=== PATIENT | male | born 1940 | race Caucasian/White ===

== ENCOUNTER 2018-08-31 07:59 | Day surgery (SDC) | payer MEDICARE, MEDICAID ==
[~2018-08-31] VITALS: Ht 162.6 cm; Wt 48.8 kg
[~2018-08-31 07:59] MED LIST: HEPARIN 1,000 UNITS/ML, 10ML ONE
[2018-08-31] MEDS ORDERED: SODIUM CHLORIDE 0.9% 1,000 ML IV SCH (08:45)
[2018-08-31 08:59] VITALS: BP 184/90
[2018-08-31] MEDS ORDERED: PLEASE ENTER ALLERGIES MC SCH (09:00)
[2018-08-31] MEDS ORDERED: PLEASE ENTER HEIGHT AND WEIGHT MC SCH (09:00)
[2018-08-31] MEDS ORDERED: AMLO-150 PO (09:20)
[2018-08-31] MEDS ORDERED: VITAMIN PO (09:20)
[2018-08-31] MEDS ORDERED: ASPI-496 PO (09:20)
[2018-08-31] MEDS ORDERED: SITA25TA PO (09:20)
[2018-08-31] MEDS ORDERED: WARF-36 PO (09:20)
[2018-08-31] MEDS ORDERED: VIT B PO (09:20)
[2018-08-31] MEDS ORDERED: SEVE800T8 PO (09:20)
[2018-08-31 09:44] LABS: INTERNATIONAL NORMALIZED RATIO 1.07 (0.93-1.1); PROTHROMBIN TIME 11.2 Seconds (9.6-11.5)
[2018-08-31] MEDS ORDERED: DIPHENHYDRAMINE 50 MG/ML, 1ML IVPush PRN (10:00)
[2018-08-31] MEDS ORDERED: PROMETHAZINE 25 MG/ML, 1ML IV PRN (10:00)
[2018-08-31] MEDS ORDERED: HYDROmorphone 2 MG/ML, 1ML IVPush PRN (10:00)
[2018-08-31] MEDS ORDERED: HALOPERIDOL 5 MG/ML IV PRN (10:00)
[2018-08-31] MEDS ORDERED: FENTANYL PF 100 MCG/2ML IV PRN (10:00)
[2018-08-31] MEDS ORDERED: PROCHLORPERAZINE 5 MG/ML, 2ML IV PRN (10:00)
[2018-08-31] MEDS ORDERED: METOPROLOL 1 MG/ML, 5ML IV PRN (10:00)
[2018-08-31] MEDS ORDERED: OXYcodone 5 MG/5 ML ORAL.SOL UDC PO PRN (10:00)
[2018-08-31] MEDS ORDERED: hydrALAzine 20 MG/ML, 1ML IV PRN (10:00)
[2018-08-31] MEDS ORDERED: LABETALOL 5MG/ML, 20ML IV PRN (10:00)
[2018-08-31] MEDS ORDERED: MEPERIDINE/PF 25MG/0.5ML IVPush PRN (10:00)
[2018-08-31] MEDS ORDERED: FENTANYL PF 100 MCG/2ML ONE ×2 (10:10→12:03)
[2018-08-31] MEDS ORDERED: SUGAMMADEX 200 MG/2 ML IVPush ONE (10:34)
[2018-08-31] MEDS ORDERED: HEPARIN 1,000 UNITS/ML, 10ML DIALYCATH ONE (10:58)
[2018-08-31] MEDS ORDERED: GLYCOPYRROLATE 0.2MG/1ML, 5ML ONE (11:24)
[2018-08-31] MEDS ORDERED: DEXAMETHASONE 4 MG/ML, 1ML ONE (11:24)
[2018-08-31] MEDS ORDERED: ONDANSETRON 2MG/ML, 2ML ONE (11:24)
[2018-08-31] MEDS ORDERED: PROPOFOL 10 MG/ML, 20ML ONE (11:24)
[2018-08-31] MEDS ORDERED: CEFAZOLIN 1,000 MG ONE (11:24)
[2018-08-31] MEDS ORDERED: ROCURONIUM 10MG/ML,5ML ONE (11:24)
[2018-08-31] MEDS ORDERED: SUCCINYLCHOLINE 20 MG/ML, 10ML ONE (11:24)
[2018-08-31] MEDS ORDERED: NEOSTIGMINE 1 MG/ML, 10ML ONE (11:24)
[2018-08-31] MEDS ORDERED: THROMBIN 5,000 UNIT VIAL TP ONE ×2 (11:35→11:57)
[2018-08-31] MEDS ORDERED: HYDROmorphone 1 MG/ML, 1ML ONE (12:03)
== END 2018-08-31 14:51 | disposition home or self-care (01) ==
LOC: OUT 07:59
PROVIDERS: ATTEND Surgery Vascular Surgery
DX: T82.590A Other mechanical complication of surgically created arteriovenous fistula, initial encounter (principal); I48.91 Unspecified atrial fibrillation; E11.9 Type 2 diabetes mellitus without complications; I25.10 Atherosclerotic heart disease of native coronary artery without angina pectoris; Z79.84 Long term (current) use of oral hypoglycemic drugs; Y92.89 Other specified places as the place of occurrence of the external cause; Y83.8 Other surgical procedures as the cause of abnormal reaction of the patient, or of later complication, without mention of misadventure at the time of the procedure
CPT/HCPCS: 36415; 36832; 80047; 85610; 93005; J0330; J0690; J1100; J1644; J2405; J2704; J2710; J3010; J3490; J7030

== ENCOUNTER 2018-12-15 11:40 | Inpatient (IN) | payer MEDICARE, MEDICAID ==
[~2018-12-15] VITALS: Ht 165.1 cm; Wt 47.5 kg
[~2018-12-15 11:40] MED LIST changes: -CINA30TA2 PO; -PLEASE ENTER HEIGHT AND WEIGHT MC SCH; -SODIUM CHLORIDE 0.9% 1,000 ML IV SCH
--- NOTE | 2018-12-15 11:55 | NUR ---
Pt assessed. Was at pre-op for dialysis cath removal and family notified RN that pt has right foot infection x 1 week. Sent to ED for eval. Denies drainage or fever from wound. Pt has hx kidney failure and DM. Last dialysis was yesterday, goes MWF. Pt to XRAY via [facility]
[2018-12-15] MEDS ORDERED: CINA30TA2 PO (12:15)
--- NOTE | 2018-12-15 12:16 | NUR ---
Pt back from XRAY, lab at drawing pt When pt asleep, O2 sat's drop to 80's. no hx sleep apnea per family. When pt arouses, O2 sat 99% room air. Placed on 3L NC while asleep.
--- NOTE | 2018-12-15 12:30 | NUR ---
Asked MD if wants wound cx, stated not at this time, no drainage from wound.
[2018-12-15 12:41] LABS: BASOPHILS # (AUTO) 0.01 x10^3/uL (0-0.1); BASOPHILS % (AUTO) 0 % (0-1); EOSINOPHILS # (AUTO) 0.11 x10^3/uL (0-0.4); EOSINOPHILS % (AUTO) 1 % (1-7); LYMPHOCYTES % (AUTO) 6 % (22-44); MD NO; MEAN CORPUSCULAR HEMOGLOBIN 31.7 pg (27.5-34.5); MEAN CORPUSCULAR VOLUME 99.2 fL (81-97); MEAN PLATELET VOLUME 7.2 fL (7.4-10.4); MONOCYTES # (AUTO) 0.52 x10^3/uL (0.2-0.8); MONOCYTES % (AUTO) 6 % (2-9); NEUTROPHILS # (AUTO) 7.42 x10^3/uL (1.8-6.8); NEUTROPHILS % (AUTO) 87 % (42-75); PLATELET COUNT 312 x10^3/uL (130-400); RED BLOOD COUNT 2.81 x10^6/uL (4.38-5.82); RED CELL DISTRIBUTION WIDTH 16.4 % (9.4-14.8)
[2018-12-15 12:52] LABS: INTERNATIONAL NORMALIZED RATIO 1.06 (0.93-1.1); PROTHROMBIN TIME 11.1 Seconds (9.6-11.5)
[2018-12-15 12:54] LABS: ALANINE AMINOTRANSFERASE 29 U/L (12-78); ALBUMIN 3.1 g/dL (3.4-5.0); ANION GAP 5 mmol/L (5-15); CALCIUM 8.4 mg/dL (8.5-10.1); CHLORIDE 99 mmol/L (98-107); CREATININE 5.83 mg/dL (0.7-1.3)
[2018-12-15 12:56] LABS: ALKALINE PHOSPHATASE 131 U/L (45-117); BILIRUBIN,TOTAL 1.1 mg/dL (0.2-1.0); TOTAL PROTEIN 6.4 g/dL (6.4-8.2)
[2018-12-15] MEDS ORDERED: VANCOMYCIN PMX 1GM/200ML 200 ML IV ONE (13:30)
[2018-12-15] MEDS ORDERED: VANCOMYCIN PER PHARMACY MC PRN ×2 (13:30→15:00)
--- NOTE | 2018-12-15 14:53 | NUR ---
Pt asleep at this time, awaiting inpatient orders. Abx infusing. NAD
[2018-12-15] MEDS ORDERED: HEPARIN 5,000 UNITS/ML, 1ML SQ SCH (15:00)
[2018-12-15] MEDS ORDERED: ONDANSETRON 2MG/ML, 2ML IVPush PRN (15:00)
[2018-12-15] MEDS ORDERED: ZOSYN PER PHARMACY MC PRN (15:00)
[2018-12-15] MEDS ORDERED: FLUCONAZOLE 200 MG/100 ML 100 ML IV ONE (15:00)
[2018-12-15] MEDS ORDERED: ONDANSETRON ODT 4 MG PO PRN (15:00)
--- NOTE | 2018-12-15 15:29 | NUR ---
Report to floor, ready for pt
[2018-12-15] MEDS ORDERED: HEPARIN 5,000 UNITS/ML, 1ML IV ONE (15:30)
[2018-12-15] MEDS ORDERED: PHARMACOKINETIC MONITORING MC PRN (16:00)
[2018-12-15] MEDS: INSULIN LISPRO 100 UNITS/ML, PEN SQ-INSULIN SCH ×2 (16:00→21:34)
[2018-12-15] MEDS ORDERED: NYSTATIN TOPICAL POWDER 15GM TP ONE (16:00)
[2018-12-15] MEDS ORDERED: LIDOCAINE-MPF 1%, 5ML ONE (16:11)
[2018-12-15 16:13] VITALS: BP 162/79
[2018-12-15] MEDS: HEPARIN 25,000 UNITS/500ML PMX 500 ML IV PRN (18:01)
[2018-12-15] MEDS: PIPERACILLIN/TAZO/PMX 2.25GM 50 ML IVPB SCH (18:04)
[2018-12-15] MEDS: SEVELAMER CARBONATE 800MG TAB PO SCH (18:04)
[2018-12-15] MEDS: CARVEDILOL 3.125 MG TABLET PO SCH (18:04)
[2018-12-15 19:45] VITALS: BP 105/53
[2018-12-15] MEDS: ACETAMINOPHEN 325 MG TABLET PO PRN (20:29)
[2018-12-16 01:07] VITALS: BP 132/60
[2018-12-16] MEDS: HEPARIN 5,000 UNITS/ML, 1ML IV PRN ×3 (01:16→16:12)
[2018-12-16] MEDS: PIPERACILLIN/TAZO/PMX 2.25GM 50 ML IVPB SCH ×2 (04:10→17:21)
[2018-12-16] MEDS: CARVEDILOL 3.125 MG TABLET PO SCH ×2 (05:39→17:21)
[2018-12-16] MEDS: INSULIN LISPRO 100 UNITS/ML, PEN SQ-INSULIN SCH ×4 (07:00→21:29)
[2018-12-16 07:35] VITALS: BP 155/82
[2018-12-16] MEDS: SENNA/DOCUSATE TABLET PO SCH (08:38)
[2018-12-16] MEDS: SEVELAMER CARBONATE 800MG TAB PO SCH ×3 (08:38→17:21)
[2018-12-16] MEDS: LINAGLIPTIN 5 MG TAB PO SCH (08:38)
[2018-12-16] MEDS: CINACALCET 30 MG TABLET PO SCH (08:38)
[2018-12-16] MEDS: ASPIRIN 81 MG TABLET EC PO SCH (08:39)
[2018-12-16] MEDS ORDERED: LORazepam 0.5MG TABLET PO ONE (10:30)
[2018-12-16] MEDS ORDERED: DARBEPOETIN 100 MCG/ML SQ SCH (11:00)
[2018-12-16 12:02] VITALS: BP 125/74
[2018-12-16 13:27] LABS: BASOPHILS # (AUTO) 0.04 x10^3/uL (0-0.1); BASOPHILS % (AUTO) 0 % (0-1); EOSINOPHILS # (AUTO) 0.12 x10^3/uL (0-0.4); EOSINOPHILS % (AUTO) 1 % (1-7); LYMPHOCYTES # (AUTO) 0.39 x10^3/uL (1-3.4); LYMPHOCYTES % (AUTO) 4 % (22-44); MD NO; MEAN CORPUSCULAR HEMOGLOBIN 30.7 pg (27.5-34.5); MEAN CORPUSCULAR HGB CONC 31.6 g/dL (33.2-36.2); MEAN CORPUSCULAR VOLUME 97.2 fL (81-97); MEAN PLATELET VOLUME 7.3 fL (7.4-10.4); MONOCYTES # (AUTO) 0.59 x10^3/uL (0.2-0.8); MONOCYTES % (AUTO) 6 % (2-9); NEUTROPHILS % (AUTO) 88 % (42-75); PLATELET COUNT 282 x10^3/uL (130-400); RED BLOOD COUNT 2.93 x10^6/uL (4.38-5.82); RED CELL DISTRIBUTION WIDTH 15.9 % (9.4-14.8)
[2018-12-16 13:37] LABS: ANION GAP 10 mmol/L (5-15); CALCIUM 8.3 mg/dL (8.5-10.1); CHLORIDE 97 mmol/L (98-107)
[2018-12-16 13:39] LABS: % IRON SATURATION 9 % (20-55); CREATININE 7.05 mg/dL (0.7-1.3); IRON LEVEL 24 mcg/dL (65-175); TOTAL IRON BINDING CAPACITY 256 mcg/dL (250-450)
[2018-12-16] MEDS: DARBEPOETIN 60 MCG/ML SQ SCH (14:17)
[2018-12-16 14:43] LABS: HEMOGLOBIN A1C 4.4 % (4.2-6.3)
[2018-12-16] MEDS ORDERED: GADOBUTROL 7.5 MMOL/7.5 ML PFS ONE (16:16)
[2018-12-16] MEDS: FLUCONAZOLE IV SCH (16:17)
[2018-12-16 19:55] VITALS: BP 125/70
[2018-12-16 21:14] VITALS: BP 122/70
[2018-12-17 01:54] VITALS: BP 135/74
[2018-12-17 02:14] LABS: MEAN CORPUSCULAR HEMOGLOBIN 30.6 pg (27.5-34.5); MEAN CORPUSCULAR HGB CONC 31.8 g/dL (33.2-36.2); MEAN CORPUSCULAR VOLUME 96.5 fL (81-97); MEAN PLATELET VOLUME 7.6 fL (7.4-10.4); PLATELET COUNT 261 x10^3/uL (130-400); RED BLOOD COUNT 2.43 x10^6/uL (4.38-5.82); RED CELL DISTRIBUTION WIDTH 15.9 % (9.4-14.8)
[2018-12-17 02:16] LABS: MD YES
[2018-12-17 02:19] LABS: ANISOCYTOSIS 1+; BANDS%(MANUAL) 1 % (0-7); BASOS% (MANUAL) 1 % (0-1); EOS#(MANUAL) 0.39 x10^3/uL (0.0-0.4); EOS% (MANUAL) 4 % (1-7); LYMPHS% (MANUAL) 1 % (22-44); MONOS#(MANUAL) 0.97 x10^3/uL (0.3-2.7); MONOS% (MANUAL) 10 % (2-9); SEG#(MANUAL) 8.05 x10^3/uL (1.8-6.8); SEGS% (MANUAL) 83 % (42-75)
[2018-12-17 02:20] LABS: POLYCHROMASIA 1+
[2018-12-17 02:30] LABS: <PLATELET ESTIMATE> ADEQUATE; <PLT MORPHOLOGY> NORMAL PLT MORPH
[2018-12-17 02:48] LABS: ALBUMIN 2.5 g/dL (3.4-5.0); CHLORIDE 99 mmol/L (98-107)
[2018-12-17 02:51] LABS: % IRON SATURATION 11 % (20-55); ALANINE AMINOTRANSFERASE 21 U/L (12-78); ALKALINE PHOSPHATASE 121 U/L (45-117); ANION GAP 11 mmol/L (5-15); BILIRUBIN,TOTAL 0.9 mg/dL (0.2-1.0); CREATININE 7.63 mg/dL (0.7-1.3); IRON LEVEL 18 mcg/dL (65-175); TOTAL IRON BINDING CAPACITY 157 mcg/dL (250-450); TOTAL PROTEIN 5.7 g/dL (6.4-8.2)
[2018-12-17] MEDS: HEPARIN 25,000 UNITS/500ML PMX 500 ML IV PRN (03:57)
[2018-12-17] MEDS: CARVEDILOL 3.125 MG TABLET PO SCH ×2 (05:11→20:53)
[2018-12-17] MEDS: PIPERACILLIN/TAZO/PMX 2.25GM 50 ML IVPB SCH ×2 (05:11→17:59)
[2018-12-17] MEDS: INSULIN LISPRO 100 UNITS/ML, PEN SQ-INSULIN SCH ×4 (07:00→20:41)
[2018-12-17 07:18] VITALS: BP 129/78
[2018-12-17] MEDS: SEVELAMER CARBONATE 800MG TAB PO SCH ×3 (09:56→17:00)
[2018-12-17] MEDS: CINACALCET 30 MG TABLET PO SCH (09:57)
[2018-12-17] MEDS: ASPIRIN 81 MG TABLET EC PO SCH (09:57)
[2018-12-17] MEDS: SENNA/DOCUSATE TABLET PO SCH (09:57)
[2018-12-17] MEDS: LINAGLIPTIN 5 MG TAB PO SCH (09:57)
[2018-12-17 13:15] VITALS: BP 106/61
[2018-12-17] MEDS: FLUCONAZOLE IV SCH (15:06)
[2018-12-17 19:34] VITALS: BP 147/82
[2018-12-17 20:52] VITALS: BP 116/70
[2018-12-18 02:03] VITALS: BP 158/87
[2018-12-18 05:33] VITALS: BP 139/78
[2018-12-18] MEDS: PIPERACILLIN/TAZO/PMX 2.25GM 50 ML IVPB SCH ×2 (05:34→17:44)
[2018-12-18] MEDS: CARVEDILOL 3.125 MG TABLET PO SCH ×2 (05:35→17:44)
[2018-12-18 06:43] LABS: BASOPHILS # (AUTO) 0.04 x10^3/uL (0-0.1); BASOPHILS % (AUTO) 1 % (0-1); EOSINOPHILS # (AUTO) 0.12 x10^3/uL (0-0.4); EOSINOPHILS % (AUTO) 2 % (1-7); LYMPHOCYTES # (AUTO) 0.42 x10^3/uL (1-3.4); LYMPHOCYTES % (AUTO) 6 % (22-44); MD NO; MEAN CORPUSCULAR HEMOGLOBIN 30.5 pg (27.5-34.5); MEAN CORPUSCULAR VOLUME 95.4 fL (81-97); MEAN PLATELET VOLUME 7.1 fL (7.4-10.4); MONOCYTES # (AUTO) 0.43 x10^3/uL (0.2-0.8); MONOCYTES % (AUTO) 6 % (2-9); NEUTROPHILS # (AUTO) 5.78 x10^3/uL (1.8-6.8); NEUTROPHILS % (AUTO) 85 % (42-75); PLATELET COUNT 298 x10^3/uL (130-400); RED BLOOD COUNT 2.48 x10^6/uL (4.38-5.82); RED CELL DISTRIBUTION WIDTH 15.9 % (9.4-14.8)
[2018-12-18 06:55] LABS: ALBUMIN 2.4 g/dL (3.4-5.0); ANION GAP 7 mmol/L (5-15); CHLORIDE 101 mmol/L (98-107)
[2018-12-18] MEDS: INSULIN LISPRO 100 UNITS/ML, PEN SQ-INSULIN SCH ×4 (07:00→20:37)
[2018-12-18 07:01] LABS: ALANINE AMINOTRANSFERASE 13 U/L (12-78); ALKALINE PHOSPHATASE 111 U/L (45-117); BILIRUBIN,TOTAL 1.1 mg/dL (0.2-1.0); CREATININE 5.19 mg/dL (0.7-1.3); TOTAL PROTEIN 5.9 g/dL (6.4-8.2); VANCOMYCIN,RANDOM 10.8 mcg/mL
[2018-12-18] MEDS: HEPARIN 25,000 UNITS/500ML PMX 500 ML IV PRN (07:05)
[2018-12-18] MEDS: HEPARIN 5,000 UNITS/ML, 1ML IV PRN ×3 (07:50→22:00)
[2018-12-18 08:07] VITALS: BP 158/78
[2018-12-18] MEDS ORDERED: VANCOMYCIN PMX 1GM/200ML 200 ML IV ONE (09:00)
[2018-12-18] MEDS: ASPIRIN 81 MG TABLET EC PO SCH (09:23)
[2018-12-18] MEDS: SENNA/DOCUSATE TABLET PO SCH (09:23)
[2018-12-18] MEDS: LINAGLIPTIN 5 MG TAB PO SCH (09:23)
[2018-12-18] MEDS: CINACALCET 30 MG TABLET PO SCH (09:23)
[2018-12-18] MEDS: SEVELAMER CARBONATE 800MG TAB PO SCH ×3 (09:23→17:44)
[2018-12-18 12:52] VITALS: BP 131/72
[2018-12-18 15:01] LABS: OCCULT BLOOD NEGATIVE (NEGATIVE)
[2018-12-18 17:48] VITALS: BP 166/81
[2018-12-18 19:09] VITALS: BP 146/78
[2018-12-19 01:58] VITALS: BP 144/85
[2018-12-19] MEDS: HEPARIN 25,000 UNITS/500ML PMX 500 ML IV PRN ×2 (04:17→22:22)
[2018-12-19 05:02] LABS: ALANINE AMINOTRANSFERASE 16 U/L (12-78); ALBUMIN 2.5 g/dL (3.4-5.0); ANION GAP 9 mmol/L (5-15); CALCIUM 8.1 mg/dL (8.5-10.1); CHLORIDE 99 mmol/L (98-107)
[2018-12-19 05:03] LABS: BASOPHILS # (AUTO) 0.06 x10^3/uL (0-0.1); BASOPHILS % (AUTO) 1 % (0-1); EOSINOPHILS % (AUTO) 2 % (1-7); LYMPHOCYTES # (AUTO) 0.81 x10^3/uL (1-3.4); LYMPHOCYTES % (AUTO) 8 % (22-44); MD NO; MEAN CORPUSCULAR HEMOGLOBIN 31.1 pg (27.5-34.5); MEAN CORPUSCULAR HGB CONC 32.1 g/dL (33.2-36.2); MEAN CORPUSCULAR VOLUME 96.7 fL (81-97); MEAN PLATELET VOLUME 7.3 fL (7.4-10.4); MONOCYTES # (AUTO) 0.66 x10^3/uL (0.2-0.8); MONOCYTES % (AUTO) 7 % (2-9); NEUTROPHILS % (AUTO) 82 % (42-75); PLATELET COUNT 295 x10^3/uL (130-400); RED BLOOD COUNT 2.69 x10^6/uL (4.38-5.82); RED CELL DISTRIBUTION WIDTH 16.3 % (9.4-14.8)
[2018-12-19 05:04] LABS: ALKALINE PHOSPHATASE 125 U/L (45-117); BILIRUBIN,TOTAL 0.7 mg/dL (0.2-1.0); TOTAL PROTEIN 6.1 g/dL (6.4-8.2)
[2018-12-19] MEDS: HEPARIN 5,000 UNITS/ML, 1ML IV PRN (05:04)
[2018-12-19] MEDS: CARVEDILOL 3.125 MG TABLET PO SCH ×2 (05:05→17:25)
[2018-12-19] MEDS: PIPERACILLIN/TAZO/PMX 2.25GM 50 ML IVPB SCH ×2 (05:05→17:13)
[2018-12-19] MEDS: INSULIN LISPRO 100 UNITS/ML, PEN SQ-INSULIN SCH ×4 (07:00→20:33)
[2018-12-19 07:42] VITALS: BP 139/78
[2018-12-19] MEDS: SEVELAMER CARBONATE 800MG TAB PO SCH ×4 (08:00→17:25)
[2018-12-19] MEDS: SENNA/DOCUSATE TABLET PO SCH (08:22)
[2018-12-19] MEDS: CINACALCET 30 MG TABLET PO SCH (08:22)
[2018-12-19] MEDS: LINAGLIPTIN 5 MG TAB PO SCH (08:22)
[2018-12-19] MEDS: ASPIRIN 81 MG TABLET EC PO SCH (08:22)
[2018-12-19 14:29] VITALS: BP 154/79
[2018-12-19 19:11] VITALS: BP 130/71
[2018-12-20 03:05] VITALS: BP 151/79
[2018-12-20 05:20] LABS: BASOPHILS # (AUTO) 0.02 x10^3/uL (0-0.1); BASOPHILS % (AUTO) 0 % (0-1); EOSINOPHILS # (AUTO) 0.16 x10^3/uL (0-0.4); EOSINOPHILS % (AUTO) 2 % (1-7); HCT (SEDRATE) 25.7 % (39.2-51.8); LYMPHOCYTES # (AUTO) 0.49 x10^3/uL (1-3.4); LYMPHOCYTES % (AUTO) 7 % (22-44); MD NO; MEAN CORPUSCULAR HEMOGLOBIN 30.6 pg (27.5-34.5); MEAN CORPUSCULAR VOLUME 95.8 fL (81-97); MEAN PLATELET VOLUME 7.1 fL (7.4-10.4); MONOCYTES # (AUTO) 0.38 x10^3/uL (0.2-0.8); MONOCYTES % (AUTO) 6 % (2-9); NEUTROPHILS # (AUTO) 5.82 x10^3/uL (1.8-6.8); NEUTROPHILS % (AUTO) 85 % (42-75); PLATELET COUNT 319 x10^3/uL (130-400); RED BLOOD COUNT 2.68 x10^6/uL (4.38-5.82); RED CELL DISTRIBUTION WIDTH 15.7 % (9.4-14.8)
[2018-12-20 05:24] LABS: ANION GAP 6 mmol/L (5-15); CALCIUM 8.8 mg/dL (8.5-10.1); CHLORIDE 99 mmol/L (98-107); CREATININE 4.53 mg/dL (0.7-1.3)
[2018-12-20 05:52] VITALS: BP 162/82
[2018-12-20] MEDS: PIPERACILLIN/TAZO/PMX 2.25GM 50 ML IVPB SCH ×2 (05:53→16:59)
[2018-12-20] MEDS: CARVEDILOL 3.125 MG TABLET PO SCH ×2 (05:53→16:59)
[2018-12-20] MEDS: INSULIN LISPRO 100 UNITS/ML, PEN SQ-INSULIN SCH ×4 (07:00→20:41)
[2018-12-20 07:16] VITALS: BP 156/80
[2018-12-20] MEDS: SEVELAMER CARBONATE 800MG TAB PO SCH ×3 (08:00→16:59)
[2018-12-20] MEDS: CINACALCET 30 MG TABLET PO SCH (09:00)
[2018-12-20] MEDS: LINAGLIPTIN 5 MG TAB PO SCH (09:00)
[2018-12-20] MEDS: ASPIRIN 81 MG TABLET EC PO SCH (09:00)
[2018-12-20] MEDS: SENNA/DOCUSATE TABLET PO SCH (09:00)
[2018-12-20 15:47] VITALS: BP 141/68
[2018-12-20] MEDS ORDERED: HEPARIN 5,000 UNITS/ML, 1ML IV PRN (16:30)
[2018-12-20] MEDS ORDERED: HEPARIN 25,000 UNITS/500ML PMX 500 ML ONE (16:49)
[2018-12-20] MEDS ORDERED: HEPARIN 25,000 UNITS/500ML PMX 500 ML IV PRN (17:00)
[2018-12-20 20:31] VITALS: BP 130/65
[2018-12-21 01:54] VITALS: BP 135/72
[2018-12-21 05:27] VITALS: BP 158/74
[2018-12-21] MEDS: PIPERACILLIN/TAZO/PMX 2.25GM 50 ML IVPB SCH ×2 (05:27→16:48)
[2018-12-21] MEDS: CARVEDILOL 3.125 MG TABLET PO SCH ×2 (05:27→18:00)
[2018-12-21 06:50] LABS: MEAN CORPUSCULAR HEMOGLOBIN 30.7 pg (27.5-34.5); MEAN CORPUSCULAR HGB CONC 32.3 g/dL (33.2-36.2); MEAN CORPUSCULAR VOLUME 95.3 fL (81-97); MEAN PLATELET VOLUME 7.1 fL (7.4-10.4); PLATELET COUNT 346 x10^3/uL (130-400); RED BLOOD COUNT 2.34 x10^6/uL (4.38-5.82); RED CELL DISTRIBUTION WIDTH 15.8 % (9.4-14.8)
[2018-12-21 06:58] LABS: ANION GAP 11 mmol/L (5-15); CALCIUM 8.9 mg/dL (8.5-10.1); CHLORIDE 96 mmol/L (98-107); CREATININE 5.87 mg/dL (0.7-1.3)
[2018-12-21 07:17] LABS: BASOPHILS % (AUTO) 0 % (0-1); EOSINOPHILS # (AUTO) 0.16 x10^3/uL (0-0.4); EOSINOPHILS % (AUTO) 2 % (1-7); LYMPHOCYTES # (AUTO) 0.67 x10^3/uL (1-3.4); LYMPHOCYTES % (AUTO) 10 % (22-44); MD SCAN; MONOCYTES # (AUTO) 0.34 x10^3/uL (0.2-0.8); MONOCYTES % (AUTO) 5 % (2-9); NEUTROPHILS # (AUTO) 5.72 x10^3/uL (1.8-6.8); NEUTROPHILS % (AUTO) 83 % (42-75)
[2018-12-21] MEDS: SEVELAMER CARBONATE 800MG TAB PO SCH ×3 (08:00→16:37)
[2018-12-21] MEDS: INSULIN LISPRO 100 UNITS/ML, PEN SQ-INSULIN SCH ×4 (08:42→21:30)
[2018-12-21] MEDS: SENNA/DOCUSATE TABLET PO SCH (09:00)
[2018-12-21] MEDS ORDERED: POTASSIUM CHLORIDE 40 MEQ in SODIUM CHLORIDE 0.9% 500 ML IV ONE (09:00)
[2018-12-21] MEDS: CINACALCET 30 MG TABLET PO SCH (09:00)
[2018-12-21] MEDS: ASPIRIN 81 MG TABLET EC PO SCH (09:00)
[2018-12-21] MEDS: IRON SUCROSE COMPLEX 100MG/5ML IV SCH (10:25)
[2018-12-21 13:11] VITALS: BP 159/59
[2018-12-21] MEDS ORDERED: HEPARIN 25,000 UNITS/500ML PMX 500 ML IV PRN (16:00)
[2018-12-21] MEDS ORDERED: ROCURONIUM 10MG/ML,5ML ONE (19:03)
[2018-12-21] MEDS ORDERED: PROPOFOL 10 MG/ML, 20ML ONE (19:03)
[2018-12-21] MEDS ORDERED: FENTANYL PF 250 MCG/5ML ONE (19:08)
[2018-12-21] MEDS ORDERED: NEOSTIGMINE 1 MG/ML, 10ML ONE (19:08)
[2018-12-21] MEDS ORDERED: GLYCOPYRROLATE 0.4 MG/2 ML, 2ML ONE (19:08)
[2018-12-21] MEDS ORDERED: SODIUM CHLORIDE 0.9% PF 10ML ONE (19:09)
[2018-12-21] MEDS ORDERED: CEFAZOLIN 1,000 MG ONE ×2 (19:09)
[2018-12-21] MEDS ORDERED: LABETALOL 5MG/ML, 20ML IV PRN (19:30)
[2018-12-21] MEDS ORDERED: hydrALAzine 20 MG/ML, 1ML IV PRN (19:30)
[2018-12-21] MEDS ORDERED: ONDANSETRON ODT 8 MG PO PRN (19:30)
[2018-12-21] MEDS ORDERED: ONDANSETRON 2MG/ML, 2ML IV PRN (19:30)
[2018-12-21] MEDS ORDERED: OXYcodone 5 MG/5 ML ORAL.SOL UDC PO PRN (19:30)
[2018-12-21] MEDS ORDERED: FENTANYL PF 100 MCG/2ML IV PRN (19:30)
[2018-12-21] MEDS ORDERED: PHENYLEPHRINE 10 MG/ML ONE (19:50)
[2018-12-21] MEDS ORDERED: HYDROmorphone 2 MG/ML, 1ML ONE (20:57)
[2018-12-21] MEDS: HYDROmorphone 2 MG/ML, 1ML IVPush PRN ×2 (21:00→21:10)
[2018-12-21 22:24] VITALS: BP 145/81
[2018-12-21] MEDS ORDERED: HYDROmorphone 2 MG/ML, 1ML IVPush PRN (23:00)
[2018-12-21] MEDS: SODIUM CHLORIDE 0.9% 1,000 ML IV SCH (23:20)
[2018-12-22 02:19] VITALS: BP 145/84
[2018-12-22] MEDS: OXYcodone 5 MG/5 ML ORAL.SOL UDC PO PRN ×3 (05:14→22:20)
[2018-12-22] MEDS: CARVEDILOL 3.125 MG TABLET PO SCH ×2 (05:15→17:03)
[2018-12-22] MEDS: PIPERACILLIN/TAZO/PMX 2.25GM 50 ML IVPB SCH ×2 (06:02→17:03)
[2018-12-22 06:26] LABS: BASOPHILS # (AUTO) 0.02 x10^3/uL (0-0.1); BASOPHILS % (AUTO) 0 % (0-1); EOSINOPHILS # (AUTO) 0.19 x10^3/uL (0-0.4); EOSINOPHILS % (AUTO) 2 % (1-7); LYMPHOCYTES # (AUTO) 0.59 x10^3/uL (1-3.4); LYMPHOCYTES % (AUTO) 5 % (22-44); MD NO; MEAN CORPUSCULAR HEMOGLOBIN 30.2 pg (27.5-34.5); MEAN CORPUSCULAR HGB CONC 31.9 g/dL (33.2-36.2); MEAN CORPUSCULAR VOLUME 94.7 fL (81-97); MONOCYTES # (AUTO) 0.44 x10^3/uL (0.2-0.8); MONOCYTES % (AUTO) 4 % (2-9); NEUTROPHILS # (AUTO) 10.33 x10^3/uL (1.8-6.8); NEUTROPHILS % (AUTO) 89 % (42-75); PLATELET COUNT 372 x10^3/uL (130-400); RED BLOOD COUNT 2.67 x10^6/uL (4.38-5.82); RED CELL DISTRIBUTION WIDTH 15.8 % (9.4-14.8)
[2018-12-22 06:27] VITALS: BP 150/81
[2018-12-22 06:29] LABS: ALANINE AMINOTRANSFERASE 15 U/L (12-78); ALBUMIN 2.5 g/dL (3.4-5.0); ANION GAP 10 mmol/L (5-15); CALCIUM 9.7 mg/dL (8.5-10.1); CHLORIDE 99 mmol/L (98-107); CREATININE 6.77 mg/dL (0.7-1.3)
[2018-12-22 06:31] LABS: ALKALINE PHOSPHATASE 104 U/L (45-117); BILIRUBIN,TOTAL 0.8 mg/dL (0.2-1.0); TOTAL PROTEIN 6.2 g/dL (6.4-8.2)
[2018-12-22] MEDS: SEVELAMER CARBONATE 800MG TAB PO SCH ×3 (08:27→17:03)
[2018-12-22] MEDS: INSULIN LISPRO 100 UNITS/ML, PEN SQ-INSULIN SCH ×4 (08:27→20:31)
[2018-12-22] MEDS: SENNA/DOCUSATE TABLET PO SCH (09:00)
[2018-12-22] MEDS: CINACALCET 30 MG TABLET PO SCH (09:00)
[2018-12-22] MEDS: ASPIRIN 81 MG TABLET EC PO SCH (09:00)
[2018-12-22] MEDS: IRON SUCROSE COMPLEX 100MG/5ML IV SCH (09:00)
[2018-12-22] MEDS: LINAGLIPTIN 5 MG TAB PO SCH (09:00)
[2018-12-22] MEDS: AMLODIPINE 5 MG TABLET PO SCH (09:00)
[2018-12-22 13:49] VITALS: BP 123/64
[2018-12-22 18:00] LABS: INTERNATIONAL NORMALIZED RATIO 1.04 (0.93-1.1); PROTHROMBIN TIME 10.9 Seconds (9.6-11.5)
[2018-12-22] MEDS: WARFARIN 5 MG TABLET PO-COUM SCH (18:17)
[2018-12-22 19:05] VITALS: BP 106/51
[2018-12-23] VITALS (8 sets, daily range): BP systolic 100–127; BP diastolic 52–75
[2018-12-23] MEDS: PIPERACILLIN/TAZO/PMX 2.25GM 50 ML IVPB SCH (05:12)
[2018-12-23] MEDS: CARVEDILOL 3.125 MG TABLET PO SCH ×2 (05:13→17:23)
[2018-12-23] MEDS: SODIUM CHLORIDE 0.9% 1,000 ML IV SCH (05:13)
[2018-12-23] MEDS: OXYcodone 5 MG/5 ML ORAL.SOL UDC PO PRN ×2 (06:10→18:11)
[2018-12-23 07:10] LABS: ALANINE AMINOTRANSFERASE 9 U/L (12-78); ALBUMIN 2.3 g/dL (3.4-5.0); ANION GAP 9 mmol/L (5-15); CALCIUM 8.9 mg/dL (8.5-10.1); CHLORIDE 100 mmol/L (98-107); CREATININE 5.16 mg/dL (0.7-1.3)
[2018-12-23 07:12] LABS: ALKALINE PHOSPHATASE 103 U/L (45-117); BILIRUBIN,TOTAL 0.8 mg/dL (0.2-1.0); TOTAL PROTEIN 5.9 g/dL (6.4-8.2)
[2018-12-23 07:18] LABS: MEAN CORPUSCULAR HEMOGLOBIN 31.2 pg (27.5-34.5); MEAN CORPUSCULAR HGB CONC 32.2 g/dL (33.2-36.2); MEAN CORPUSCULAR VOLUME 97.1 fL (81-97); RED CELL DISTRIBUTION WIDTH 16.8 % (9.4-14.8)
[2018-12-23 07:20] LABS: HEMOGRAM NOTE RECHECKED
[2018-12-23 07:21] LABS: MEAN PLATELET VOLUME 7.1 fL (7.4-10.4); PLATELET COUNT 352 x10^3/uL (130-400)
[2018-12-23 08:13] LABS: MD YES
[2018-12-23 08:15] LABS: BAND#(MANUAL) 0.21 x10^3/uL; BANDS%(MANUAL) 3 % (0-7); BASOS#(MANUAL) 0.07 x10^3/uL (0-0.1); BASOS% (MANUAL) 1 % (0-1); LYMPH#(MANUAL) 0.35 x10^3/uL (1-3.4); LYMPHS% (MANUAL) 5 % (22-44); METAMYELOCYTES# (MANUAL) 0.14 x10^3/uL (0-0); METAMYELOCYTES% (MANUAL) 2 % (0-1); MONOS#(MANUAL) 0.21 x10^3/uL (0.3-2.7); MONOS% (MANUAL) 3 % (2-9); SEG#(MANUAL) 6.02 x10^3/uL (1.8-6.8); SEGS% (MANUAL) 86 % (42-75)
[2018-12-23 08:16] LABS: ANISOCYTOSIS 2+; POLYCHROMASIA 1+
[2018-12-23 08:17] LABS: HYPOCHROMIA 1+
[2018-12-23 08:18] LABS: <PLATELET ESTIMATE> ADEQUATE; <PLT MORPHOLOGY> NORMAL PLT MORPH
[2018-12-23] MEDS: ASPIRIN 81 MG TABLET EC PO SCH (08:24)
[2018-12-23] MEDS: LINAGLIPTIN 5 MG TAB PO SCH (08:24)
[2018-12-23] MEDS: CINACALCET 30 MG TABLET PO SCH (08:24)
[2018-12-23] MEDS: SEVELAMER CARBONATE 800MG TAB PO SCH ×3 (08:24→17:22)
[2018-12-23] MEDS: IRON SUCROSE COMPLEX 100MG/5ML IV SCH (08:25)
[2018-12-23] MEDS: INSULIN LISPRO 100 UNITS/ML, PEN SQ-INSULIN SCH ×4 (08:25→20:07)
[2018-12-23] MEDS: SENNA/DOCUSATE TABLET PO SCH (08:25)
[2018-12-23] MEDS: AMLODIPINE 5 MG TABLET PO SCH (08:25)
[2018-12-23] MEDS: DARBEPOETIN 60 MCG/ML SQ SCH (11:25)
[2018-12-23 18:04] LABS: INTERNATIONAL NORMALIZED RATIO 1.37 (0.93-1.1); PROTHROMBIN TIME 14.2 Seconds (9.6-11.5)
[2018-12-23] MEDS: WARFARIN 5 MG TABLET PO-COUM SCH (18:25)
[2018-12-24 01:08] VITALS: BP 117/72
[2018-12-24] MEDS: CARVEDILOL 3.125 MG TABLET PO SCH ×2 (05:40→17:31)
[2018-12-24 05:58] LABS: INTERNATIONAL NORMALIZED RATIO 1.49 (0.93-1.1); PROTHROMBIN TIME 15.4 Seconds (9.6-11.5)
[2018-12-24 06:02] LABS: BASOPHILS # (AUTO) 0.04 x10^3/uL (0-0.1); BASOPHILS % (AUTO) 1 % (0-1); EOSINOPHILS # (AUTO) 0.25 x10^3/uL (0-0.4); EOSINOPHILS % (AUTO) 3 % (1-7); LYMPHOCYTES # (AUTO) 0.75 x10^3/uL (1-3.4); LYMPHOCYTES % (AUTO) 10 % (22-44); MD NO; MEAN CORPUSCULAR HEMOGLOBIN 31.1 pg (27.5-34.5); MEAN CORPUSCULAR HGB CONC 32.3 g/dL (33.2-36.2); MEAN CORPUSCULAR VOLUME 96.2 fL (81-97); MEAN PLATELET VOLUME 6.8 fL (7.4-10.4); MONOCYTES # (AUTO) 0.43 x10^3/uL (0.2-0.8); MONOCYTES % (AUTO) 6 % (2-9); NEUTROPHILS # (AUTO) 6.29 x10^3/uL (1.8-6.8); NEUTROPHILS % (AUTO) 81 % (42-75); PLATELET COUNT 358 x10^3/uL (130-400); RED CELL DISTRIBUTION WIDTH 16.5 % (9.4-14.8)
[2018-12-24 06:07] LABS: ALBUMIN 2.4 g/dL (3.4-5.0); ANION GAP 8 mmol/L (5-15); CALCIUM 8.7 mg/dL (8.5-10.1); CHLORIDE 100 mmol/L (98-107)
[2018-12-24 06:10] LABS: ALANINE AMINOTRANSFERASE < 6 U/L (12-78); ALKALINE PHOSPHATASE 125 U/L (45-117); BILIRUBIN,TOTAL 0.8 mg/dL (0.2-1.0); CREATININE 6.23 mg/dL (0.7-1.3); TOTAL PROTEIN 6.1 g/dL (6.4-8.2)
[2018-12-24] MEDS: INSULIN LISPRO 100 UNITS/ML, PEN SQ-INSULIN SCH ×4 (07:00→21:00)
[2018-12-24] MEDS: SEVELAMER CARBONATE 800MG TAB PO SCH ×3 (08:00→17:30)
[2018-12-24] MEDS: SENNA/DOCUSATE TABLET PO SCH (09:00)
[2018-12-24] MEDS: AMLODIPINE 5 MG TABLET PO SCH (13:28)
[2018-12-24] MEDS: CINACALCET 30 MG TABLET PO SCH (13:28)
[2018-12-24] MEDS: ASPIRIN 81 MG TABLET EC PO SCH (13:28)
[2018-12-24] MEDS: LINAGLIPTIN 5 MG TAB PO SCH (13:28)
[2018-12-24] MEDS: IRON SUCROSE COMPLEX 100MG/5ML IV SCH (13:28)
[2018-12-24] MEDS: WARFARIN 5 MG TABLET PO-COUM SCH (17:31)
[2018-12-24 19:19] VITALS: BP 138/74
[2018-12-25 00:51] VITALS: BP 133/71
[2018-12-25] MEDS: OXYcodone 5 MG/5 ML ORAL.SOL UDC PO PRN ×2 (02:12→10:29)
[2018-12-25] MEDS: CARVEDILOL 3.125 MG TABLET PO SCH ×2 (05:54→22:05)
[2018-12-25 06:07] LABS: INTERNATIONAL NORMALIZED RATIO 3.38 (0.93-1.1)
[2018-12-25 06:11] LABS: PROTHROMBIN TIME 33.9 Seconds (9.6-11.5)
[2018-12-25 06:12] LABS: CALCIUM 8.8 mg/dL (8.5-10.1); CHLORIDE 99 mmol/L (98-107)
[2018-12-25 06:18] LABS: ALANINE AMINOTRANSFERASE 7 U/L (12-78); ALBUMIN 2.7 g/dL (3.4-5.0); ALKALINE PHOSPHATASE 114 U/L (45-117); ANION GAP 11 mmol/L (5-15); CREATININE 5.19 mg/dL (0.7-1.3); TOTAL PROTEIN 6.6 g/dL (6.4-8.2)
[2018-12-25] MEDS: INSULIN LISPRO 100 UNITS/ML, PEN SQ-INSULIN SCH ×4 (07:45→22:04)
[2018-12-25 08:56] VITALS: BP 129/65
[2018-12-25] MEDS: SEVELAMER CARBONATE 800MG TAB PO SCH ×3 (09:56→22:00)
[2018-12-25] MEDS: LINAGLIPTIN 5 MG TAB PO SCH (09:56)
[2018-12-25] MEDS: CINACALCET 30 MG TABLET PO SCH (09:56)
[2018-12-25] MEDS: AMLODIPINE 5 MG TABLET PO SCH (09:56)
[2018-12-25] MEDS: ASPIRIN 81 MG TABLET EC PO SCH (09:56)
[2018-12-25] MEDS: IRON SUCROSE COMPLEX 100MG/5ML IV SCH (09:57)
[2018-12-25] MEDS: SENNA/DOCUSATE TABLET PO SCH (09:57)
[2018-12-25 14:00] VITALS: BP 136/57
[2018-12-25 18:57] VITALS: BP 139/78
[2018-12-25] MEDS: WARFARIN 5 MG TABLET PO-COUM SCH (19:00)
[2018-12-26 00:20] VITALS: BP 133/60
[2018-12-26 04:32] LABS: BASOPHILS # (AUTO) 0.05 x10^3/uL (0-0.1); BASOPHILS % (AUTO) 1 % (0-1); EOSINOPHILS % (AUTO) 3 % (1-7); LYMPHOCYTES # (AUTO) 0.61 x10^3/uL (1-3.4); LYMPHOCYTES % (AUTO) 6 % (22-44); MD NO; MEAN CORPUSCULAR HEMOGLOBIN 32.1 pg (27.5-34.5); MEAN CORPUSCULAR HGB CONC 32.6 g/dL (33.2-36.2); MEAN CORPUSCULAR VOLUME 98.3 fL (81-97); MEAN PLATELET VOLUME 6.8 fL (7.4-10.4); MONOCYTES # (AUTO) 0.55 x10^3/uL (0.2-0.8); MONOCYTES % (AUTO) 6 % (2-9); NEUTROPHILS # (AUTO) 8.56 x10^3/uL (1.8-6.8); NEUTROPHILS % (AUTO) 85 % (42-75); PLATELET COUNT 416 x10^3/uL (130-400); RED BLOOD COUNT 2.98 x10^6/uL (4.38-5.82); RED CELL DISTRIBUTION WIDTH 17.1 % (9.4-14.8)
[2018-12-26 04:40] LABS: CALCIUM 8.7 mg/dL (8.5-10.1); CHLORIDE 97 mmol/L (98-107)
[2018-12-26 04:43] LABS: ALBUMIN 2.7 g/dL (3.4-5.0); ALKALINE PHOSPHATASE 114 U/L (45-117); ANION GAP 10 mmol/L (5-15); BILIRUBIN,TOTAL 1.1 mg/dL (0.2-1.0); CREATININE 6.25 mg/dL (0.7-1.3); TOTAL PROTEIN 6.2 g/dL (6.4-8.2)
[2018-12-26 04:44] LABS: ALANINE AMINOTRANSFERASE < 6 U/L (12-78)
[2018-12-26 05:46] LABS: INTERNATIONAL NORMALIZED RATIO 5.48 (0.93-1.1); PROTHROMBIN TIME 53.9 Seconds (9.6-11.5)
[2018-12-26 06:40] VITALS: BP 132/69
[2018-12-26] MEDS: INSULIN LISPRO 100 UNITS/ML, PEN SQ-INSULIN SCH ×4 (07:00→20:29)
[2018-12-26] MEDS ORDERED: [UNRECOGNIZED DRUG - REMARK] MC SCH ×2 (07:30)
[2018-12-26] MEDS: ASPIRIN 81 MG TABLET EC PO SCH ×2 (08:12→10:36)
[2018-12-26] MEDS: CARVEDILOL 3.125 MG TABLET PO SCH ×2 (09:00→18:02)
[2018-12-26] MEDS: AMLODIPINE 5 MG TABLET PO SCH (09:00)
[2018-12-26] MEDS: CINACALCET 30 MG TABLET PO SCH (10:36)
[2018-12-26] MEDS: SEVELAMER CARBONATE 800MG TAB PO SCH ×3 (10:36→18:05)
[2018-12-26] MEDS: SENNA/DOCUSATE TABLET PO SCH (10:37)
[2018-12-26] MEDS: LINAGLIPTIN 5 MG TAB PO SCH (10:37)
[2018-12-26] MEDS: [UNRECOGNIZED DRUG - REMARK] MC SCH ×2 (12:24→20:24)
[2018-12-26 15:25] VITALS: BP 115/61
[2018-12-26 19:50] VITALS: BP 129/62
[2018-12-27 03:20] VITALS: BP 151/96
[2018-12-27] MEDS: [UNRECOGNIZED DRUG - REMARK] MC SCH (04:24)
[2018-12-27 05:38] VITALS: BP 137/70
[2018-12-27] MEDS: CARVEDILOL 3.125 MG TABLET PO SCH ×2 (05:39→17:45)
[2018-12-27 05:47] LABS: INTERNATIONAL NORMALIZED RATIO 6.48 (0.93-1.1); PROTHROMBIN TIME 63.3 Seconds (9.6-11.5)
[2018-12-27] MEDS: INSULIN LISPRO 100 UNITS/ML, PEN SQ-INSULIN SCH ×4 (07:00→20:58)
[2018-12-27] MEDS: [UNRECOGNIZED DRUG - REMARK] MC SCH ×3 (07:30→23:30)
[2018-12-27 08:00] VITALS: BP 127/74
[2018-12-27] MEDS: SENNA/DOCUSATE TABLET PO SCH (10:05)
[2018-12-27] MEDS: AMLODIPINE 5 MG TABLET PO SCH (10:05)
[2018-12-27] MEDS: LINAGLIPTIN 5 MG TAB PO SCH (10:05)
[2018-12-27] MEDS: CINACALCET 30 MG TABLET PO SCH (10:05)
[2018-12-27] MEDS: SEVELAMER CARBONATE 800MG TAB PO SCH ×3 (10:05→17:45)
[2018-12-27 19:59] VITALS: BP 127/63
[2018-12-28 00:46] VITALS: BP 132/72
[2018-12-28 05:51] LABS: ALBUMIN 2.6 g/dL (3.4-5.0); ANION GAP 9 mmol/L (5-15); CALCIUM 9.2 mg/dL (8.5-10.1); CHLORIDE 96 mmol/L (98-107); CREATININE 6.41 mg/dL (0.7-1.3)
[2018-12-28] MEDS: CARVEDILOL 3.125 MG TABLET PO SCH ×2 (05:51→17:01)
[2018-12-28 05:53] LABS: ALANINE AMINOTRANSFERASE < 6 U/L (12-78)
[2018-12-28 05:54] LABS: ALKALINE PHOSPHATASE 112 U/L (45-117); BILIRUBIN,TOTAL 1.1 mg/dL (0.2-1.0); TOTAL PROTEIN 6.2 g/dL (6.4-8.2)
[2018-12-28 06:01] LABS: MEAN CORPUSCULAR HEMOGLOBIN 31.3 pg (27.5-34.5); MEAN CORPUSCULAR HGB CONC 31.8 g/dL (33.2-36.2); MEAN CORPUSCULAR VOLUME 98.4 fL (81-97); PLATELET COUNT 489 x10^3/uL (130-400); RED BLOOD COUNT 3.28 x10^6/uL (4.38-5.82); RED CELL DISTRIBUTION WIDTH 18.2 % (9.4-14.8)
[2018-12-28 06:28] LABS: BASOPHILS # (AUTO) 0.07 x10^3/uL (0-0.1); BASOPHILS % (AUTO) 1 % (0-1); EOSINOPHILS # (AUTO) 0.29 x10^3/uL (0-0.4); EOSINOPHILS % (AUTO) 3 % (1-7); LYMPHOCYTES # (AUTO) 0.73 x10^3/uL (1-3.4); LYMPHOCYTES % (AUTO) 8 % (22-44); MD SCAN; MONOCYTES # (AUTO) 0.74 x10^3/uL (0.2-0.8); MONOCYTES % (AUTO) 8 % (2-9); NEUTROPHILS # (AUTO) 7.84 x10^3/uL (1.8-6.8); NEUTROPHILS % (AUTO) 81 % (42-75)
[2018-12-28 07:00] VITALS: BP 134/79
[2018-12-28] MEDS: INSULIN LISPRO 100 UNITS/ML, PEN SQ-INSULIN SCH ×4 (07:00→21:00)
[2018-12-28] MEDS: [UNRECOGNIZED DRUG - REMARK] MC SCH (07:30)
[2018-12-28] MEDS: AMLODIPINE 5 MG TABLET PO SCH (08:38)
[2018-12-28] MEDS: CINACALCET 30 MG TABLET PO SCH (08:38)
[2018-12-28] MEDS: ASPIRIN 81 MG TABLET EC PO SCH (08:38)
[2018-12-28] MEDS: SENNA/DOCUSATE TABLET PO SCH (08:38)
[2018-12-28] MEDS: LINAGLIPTIN 5 MG TAB PO SCH (08:38)
[2018-12-28] MEDS: SEVELAMER CARBONATE 800MG TAB PO SCH ×3 (08:38→16:09)
[2018-12-28] MEDS ORDERED: BISACODYL 10 MG SUPP PR PRN (09:30)
[2018-12-28 09:55] LABS: INTERNATIONAL NORMALIZED RATIO 3.67 (0.93-1.1); PROTHROMBIN TIME 36.7 Seconds (9.6-11.5)
[2018-12-28] MEDS: DOCUSATE 100 MG CAPSULE PO PRN (10:01)
[2018-12-28] MEDS: LACTULOSE 20 GM/30 ML UDC PO PRN (10:01)
[2018-12-28 12:44] VITALS: BP 149/73
[2018-12-28] MEDS ORDERED: WARFARIN 1 MG TABLET PO-COUM SCH (18:00)
[2018-12-28 19:47] VITALS: BP 134/72
[2018-12-29 00:12] VITALS: BP 132/60
[2018-12-29] MEDS: CARVEDILOL 3.125 MG TABLET PO SCH ×2 (05:26→16:22)
[2018-12-29 05:49] LABS: BASOPHILS # (AUTO) 0.08 x10^3/uL (0-0.1); BASOPHILS % (AUTO) 1 % (0-1); EOSINOPHILS # (AUTO) 0.24 x10^3/uL (0-0.4); EOSINOPHILS % (AUTO) 2 % (1-7); LYMPHOCYTES # (AUTO) 0.61 x10^3/uL (1-3.4); LYMPHOCYTES % (AUTO) 6 % (22-44); MD NO; MEAN CORPUSCULAR HEMOGLOBIN 31.6 pg (27.5-34.5); MEAN CORPUSCULAR HGB CONC 32.2 g/dL (33.2-36.2); MEAN CORPUSCULAR VOLUME 98.3 fL (81-97); MEAN PLATELET VOLUME 6.6 fL (7.4-10.4); MONOCYTES # (AUTO) 0.63 x10^3/uL (0.2-0.8); MONOCYTES % (AUTO) 6 % (2-9); NEUTROPHILS # (AUTO) 8.21 x10^3/uL (1.8-6.8); NEUTROPHILS % (AUTO) 84 % (42-75); PLATELET COUNT 460 x10^3/uL (130-400); RED BLOOD COUNT 2.59 x10^6/uL (4.38-5.82); RED CELL DISTRIBUTION WIDTH 19.4 % (9.4-14.8)
[2018-12-29 05:51] LABS: ALBUMIN 2.5 g/dL (3.4-5.0); ANION GAP 7 mmol/L (5-15); CALCIUM 8.5 mg/dL (8.5-10.1); CHLORIDE 95 mmol/L (98-107); INTERNATIONAL NORMALIZED RATIO 3.55 (0.93-1.1); PROTHROMBIN TIME 35.5 Seconds (9.6-11.5)
[2018-12-29] MEDS: INSULIN LISPRO 100 UNITS/ML, PEN SQ-INSULIN SCH ×4 (07:00→20:58)
[2018-12-29 07:35] VITALS: BP 129/74
[2018-12-29] MEDS: SEVELAMER CARBONATE 800MG TAB PO SCH ×3 (08:00→16:22)
[2018-12-29] MEDS ORDERED: HOLD COUMADIN MC PRN (08:00)
[2018-12-29] MEDS: LACTULOSE 20 GM/30 ML UDC PO PRN (12:34)
[2018-12-29] MEDS: AMLODIPINE 5 MG TABLET PO SCH (12:35)
[2018-12-29] MEDS: LINAGLIPTIN 5 MG TAB PO SCH (12:36)
[2018-12-29] MEDS: CINACALCET 30 MG TABLET PO SCH (12:36)
[2018-12-29] MEDS: DOCUSATE 100 MG CAPSULE PO PRN (12:36)
[2018-12-29] MEDS: ASPIRIN 81 MG TABLET EC PO SCH (12:36)
[2018-12-29] MEDS: SENNA/DOCUSATE TABLET PO SCH (12:37)
[2018-12-29 13:18] VITALS: BP 104/63
[2018-12-29 19:34] VITALS: BP 109/68
[2018-12-30 00:33] VITALS: BP 120/60
[2018-12-30] MEDS: CARVEDILOL 3.125 MG TABLET PO SCH ×2 (05:00→17:15)
[2018-12-30 06:00] LABS: INTERNATIONAL NORMALIZED RATIO 3.76 (0.93-1.1); PROTHROMBIN TIME 37.5 Seconds (9.6-11.5)
[2018-12-30] MEDS: INSULIN LISPRO 100 UNITS/ML, PEN SQ-INSULIN SCH ×4 (07:00→21:34)
[2018-12-30] MEDS: SEVELAMER CARBONATE 800MG TAB PO SCH ×3 (08:00→16:51)
[2018-12-30] MEDS ORDERED: HOLD COUMADIN MC PRN (08:00)
[2018-12-30 08:33] VITALS: BP 101/49
[2018-12-30] MEDS: LINAGLIPTIN 5 MG TAB PO SCH (09:00)
[2018-12-30] MEDS: SENNA/DOCUSATE TABLET PO SCH (09:00)
[2018-12-30] MEDS: ASPIRIN 81 MG TABLET EC PO SCH (09:00)
[2018-12-30] MEDS: AMLODIPINE 5 MG TABLET PO SCH (09:00)
[2018-12-30] MEDS: CINACALCET 30 MG TABLET PO SCH (09:00)
[2018-12-30] MEDS: DARBEPOETIN 60 MCG/ML SQ SCH (11:41)
[2018-12-30] MEDS: OXYcodone 5 MG/5 ML ORAL.SOL UDC PO PRN (18:21)
[2018-12-30 19:50] VITALS: BP 126/84
[2018-12-31 00:42] VITALS: BP 116/58
[2018-12-31] MEDS: CARVEDILOL 3.125 MG TABLET PO SCH ×2 (05:37→17:42)
[2018-12-31 06:08] LABS: INTERNATIONAL NORMALIZED RATIO 2.4 (0.93-1.1); PROTHROMBIN TIME 24.4 Seconds (9.6-11.5)
[2018-12-31] MEDS: INSULIN LISPRO 100 UNITS/ML, PEN SQ-INSULIN SCH ×4 (07:00→20:04)
[2018-12-31 07:25] VITALS: BP 118/55
[2018-12-31 10:50] VITALS: BP 137/76
[2018-12-31] MEDS: LINAGLIPTIN 5 MG TAB PO SCH (10:54)
[2018-12-31] MEDS: CINACALCET 30 MG TABLET PO SCH (10:55)
[2018-12-31] MEDS: ASPIRIN 81 MG TABLET EC PO SCH (10:55)
[2018-12-31] MEDS: SEVELAMER CARBONATE 800MG TAB PO SCH ×3 (10:55→17:42)
[2018-12-31] MEDS: AMLODIPINE 5 MG TABLET PO SCH (10:55)
[2018-12-31] MEDS: SENNA/DOCUSATE TABLET PO SCH (10:55)
[2018-12-31 12:45] VITALS: BP 119/76
[2018-12-31] MEDS ORDERED: WARFARIN 3 MG TABLET PO-COUM ONE (18:00)
[2018-12-31 19:48] VITALS: BP 121/75
[2019-01-01 01:45] VITALS: BP 130/55
[2019-01-01 03:35] LABS: BASOPHILS # (AUTO) 0.04 x10^3/uL (0-0.1); BASOPHILS % (AUTO) 1 % (0-1); EOSINOPHILS # (AUTO) 0.27 x10^3/uL (0-0.4); EOSINOPHILS % (AUTO) 3 % (1-7); LYMPHOCYTES # (AUTO) 0.72 x10^3/uL (1-3.4); LYMPHOCYTES % (AUTO) 8 % (22-44); MD NO; MEAN CORPUSCULAR HEMOGLOBIN 32.2 pg (27.5-34.5); MEAN CORPUSCULAR HGB CONC 32.1 g/dL (33.2-36.2); MEAN CORPUSCULAR VOLUME 100.3 fL (81-97); MEAN PLATELET VOLUME 7.2 fL (7.4-10.4); MONOCYTES # (AUTO) 0.54 x10^3/uL (0.2-0.8); MONOCYTES % (AUTO) 6 % (2-9); NEUTROPHILS # (AUTO) 7.36 x10^3/uL (1.8-6.8); NEUTROPHILS % (AUTO) 82 % (42-75); PLATELET COUNT 463 x10^3/uL (130-400); RED BLOOD COUNT 2.42 x10^6/uL (4.38-5.82); RED CELL DISTRIBUTION WIDTH 19.5 % (9.4-14.8)
[2019-01-01 03:43] LABS: INTERNATIONAL NORMALIZED RATIO 1.59 (0.93-1.1); PROTHROMBIN TIME 16.4 Seconds (9.6-11.5)
[2019-01-01 03:46] LABS: ALBUMIN 2.6 g/dL (3.4-5.0); ANION GAP 9 mmol/L (5-15); CALCIUM 8.6 mg/dL (8.5-10.1); CHLORIDE 94 mmol/L (98-107); CREATININE 7.74 mg/dL (0.7-1.3)
[2019-01-01] MEDS: CARVEDILOL 3.125 MG TABLET PO SCH ×2 (06:00→18:00)
[2019-01-01 06:28] VITALS: BP 128/62
[2019-01-01] MEDS: INSULIN LISPRO 100 UNITS/ML, PEN SQ-INSULIN SCH ×4 (07:00→20:50)
[2019-01-01 07:40] VITALS: BP 120/73
[2019-01-01] MEDS: SEVELAMER CARBONATE 800MG TAB PO SCH ×3 (08:00→18:39)
[2019-01-01] MEDS: CINACALCET 30 MG TABLET PO SCH (09:00)
[2019-01-01] MEDS: ASPIRIN 81 MG TABLET EC PO SCH (09:00)
[2019-01-01] MEDS: AMLODIPINE 5 MG TABLET PO SCH (09:00)
[2019-01-01] MEDS: SENNA/DOCUSATE TABLET PO SCH (09:00)
[2019-01-01] MEDS: LINAGLIPTIN 5 MG TAB PO SCH (09:00)
[2019-01-01] MEDS ORDERED: LIDOCAINE-MPF 1%, 5ML ONE (10:19)
[2019-01-01] MEDS ORDERED: PROTAMINE SULFATE 10 MG/ML, 25ML ONE (10:38)
[2019-01-01] MEDS ORDERED: HEPARIN 1,000 UNITS/ML, 10ML ONE (10:38)
[2019-01-01] MEDS ORDERED: FLUMAZENIL 0.1 MG/1 ML, 5ML ONE (10:38)
[2019-01-01] MEDS ORDERED: NALOXONE 1 MG/ML, 2ML ONE (10:38)
[2019-01-01] MEDS ORDERED: FENTANYL PF 100 MCG/2ML ONE (10:38)
[2019-01-01] MEDS ORDERED: MIDAZOLAM 1 MG/ML, 5ML ONE (10:38)
[2019-01-01] MEDS ORDERED: LIDOCAINE 1%, 20ML ONE (11:48)
[2019-01-01 14:00] VITALS: BP 113/47
[2019-01-01] MEDS ORDERED: WARFARIN 1 MG TABLET PO-COUM ONE (18:00)
[2019-01-01 19:21] VITALS: BP 114/73
[2019-01-01 20:09] VITALS: BP 108/67
[2019-01-02 01:52] VITALS: BP 121/72
[2019-01-02 04:14] LABS: BASOPHILS # (AUTO) 0.01 x10^3/uL (0-0.1); BASOPHILS % (AUTO) 0 % (0-1); EOSINOPHILS % (AUTO) 2 % (1-7); LYMPHOCYTES # (AUTO) 0.62 x10^3/uL (1-3.4); LYMPHOCYTES % (AUTO) 6 % (22-44); MD NO; MEAN CORPUSCULAR HGB CONC 32.1 g/dL (33.2-36.2); MEAN CORPUSCULAR VOLUME 99.6 fL (81-97); MEAN PLATELET VOLUME 6.9 fL (7.4-10.4); MONOCYTES # (AUTO) 0.69 x10^3/uL (0.2-0.8); MONOCYTES % (AUTO) 7 % (2-9); NEUTROPHILS # (AUTO) 8.37 x10^3/uL (1.8-6.8); NEUTROPHILS % (AUTO) 85 % (42-75); PLATELET COUNT 528 x10^3/uL (130-400); RED BLOOD COUNT 2.35 x10^6/uL (4.38-5.82); RED CELL DISTRIBUTION WIDTH 18.9 % (9.4-14.8)
[2019-01-02 04:20] LABS: INTERNATIONAL NORMALIZED RATIO 1.79 (0.93-1.1); PROTHROMBIN TIME 18.4 Seconds (9.6-11.5)
[2019-01-02 04:21] LABS: ANION GAP 5 mmol/L (5-15); CALCIUM 8.7 mg/dL (8.5-10.1); CHLORIDE 97 mmol/L (98-107); CREATININE 3.99 mg/dL (0.7-1.3)
[2019-01-02] MEDS: OXYcodone 5 MG/5 ML ORAL.SOL UDC PO PRN ×2 (04:22→08:42)
[2019-01-02] MEDS: CARVEDILOL 3.125 MG TABLET PO SCH ×2 (05:49→16:29)
[2019-01-02] MEDS: INSULIN LISPRO 100 UNITS/ML, PEN SQ-INSULIN SCH ×4 (07:00→21:00)
[2019-01-02 07:35] VITALS: BP 112/74
[2019-01-02] MEDS: SEVELAMER CARBONATE 800MG TAB PO SCH ×4 (08:00→16:29)
[2019-01-02] MEDS: CINACALCET 30 MG TABLET PO SCH ×2 (08:41→08:50)
[2019-01-02] MEDS: SENNA/DOCUSATE TABLET PO SCH ×2 (08:41→08:50)
[2019-01-02] MEDS: ASPIRIN 81 MG TABLET EC PO SCH ×2 (08:41→08:50)
[2019-01-02] MEDS: LINAGLIPTIN 5 MG TAB PO SCH ×2 (08:41→08:51)
[2019-01-02] MEDS: AMLODIPINE 5 MG TABLET PO SCH ×2 (08:41→08:50)
[2019-01-02 12:05] VITALS: BP 116/57
[2019-01-02] MEDS ORDERED: WARFARIN 2 MG TABLET PO-COUM ONE (18:00)
[2019-01-02 19:01] VITALS: BP 112/62
[2019-01-03 01:37] VITALS: BP 118/60
[2019-01-03 05:29] LABS: BASOPHILS # (AUTO) 0.11 x10^3/uL (0-0.1); BASOPHILS % (AUTO) 1 % (0-1); EOSINOPHILS # (AUTO) 0.42 x10^3/uL (0-0.4); EOSINOPHILS % (AUTO) 5 % (1-7); LYMPHOCYTES # (AUTO) 0.78 x10^3/uL (1-3.4); LYMPHOCYTES % (AUTO) 9 % (22-44); MD NO; MEAN CORPUSCULAR HEMOGLOBIN 31.9 pg (27.5-34.5); MEAN CORPUSCULAR HGB CONC 31.9 g/dL (33.2-36.2); MONOCYTES % (AUTO) 9 % (2-9); NEUTROPHILS # (AUTO) 7.06 x10^3/uL (1.8-6.8); NEUTROPHILS % (AUTO) 77 % (42-75); PLATELET COUNT 474 x10^3/uL (130-400); RED CELL DISTRIBUTION WIDTH 19.9 % (9.4-14.8)
[2019-01-03 05:35] LABS: INTERNATIONAL NORMALIZED RATIO 2.42 (0.93-1.1); PROTHROMBIN TIME 24.6 Seconds (9.6-11.5)
[2019-01-03 05:42] LABS: CHLORIDE 94 mmol/L (98-107)
[2019-01-03 05:48] LABS: ALBUMIN 2.6 g/dL (3.4-5.0); ANION GAP 10 mmol/L (5-15); CALCIUM 9.1 mg/dL (8.5-10.1); CREATININE 5.34 mg/dL (0.7-1.3)
[2019-01-03] MEDS: CARVEDILOL 3.125 MG TABLET PO SCH ×2 (06:00→17:23)
[2019-01-03] MEDS: INSULIN LISPRO 100 UNITS/ML, PEN SQ-INSULIN SCH ×4 (07:00→21:00)
[2019-01-03 08:09] VITALS: BP 98/51
[2019-01-03] MEDS: AMLODIPINE 5 MG TABLET PO SCH ×2 (09:00→10:50)
[2019-01-03] MEDS: SENNA/DOCUSATE TABLET PO SCH (10:51)
[2019-01-03] MEDS: CINACALCET 30 MG TABLET PO SCH (10:51)
[2019-01-03] MEDS: LINAGLIPTIN 5 MG TAB PO SCH (10:51)
[2019-01-03] MEDS: SEVELAMER CARBONATE 800MG TAB PO SCH ×3 (10:51→17:27)
[2019-01-03] MEDS: ASPIRIN 81 MG TABLET EC PO SCH (10:51)
[2019-01-03] MEDS: OXYcodone 5 MG/5 ML ORAL.SOL UDC PO PRN (11:09)
[2019-01-03] MEDS ORDERED: WARFARIN 2 MG TABLET PO-COUM ONE (18:00)
[2019-01-03 20:56] VITALS: BP 106/59
[2019-01-04 06:14] VITALS: BP 117/74
[2019-01-04] MEDS: CARVEDILOL 3.125 MG TABLET PO SCH ×2 (06:15→17:53)
[2019-01-04 07:20] VITALS: BP 110/55
[2019-01-04 07:41] LABS: BASOPHILS # (AUTO) 0.12 x10^3/uL (0-0.1); BASOPHILS % (AUTO) 2 % (0-1); EOSINOPHILS # (AUTO) 0.41 x10^3/uL (0-0.4); EOSINOPHILS % (AUTO) 5 % (1-7); LYMPHOCYTES # (AUTO) 0.56 x10^3/uL (1-3.4); LYMPHOCYTES % (AUTO) 7 % (22-44); MD NO; MEAN CORPUSCULAR HEMOGLOBIN 31.6 pg (27.5-34.5); MEAN CORPUSCULAR HGB CONC 31.4 g/dL (33.2-36.2); MEAN CORPUSCULAR VOLUME 100.4 fL (81-97); MEAN PLATELET VOLUME 6.9 fL (7.4-10.4); MONOCYTES % (AUTO) 8 % (2-9); NEUTROPHILS # (AUTO) 6.51 x10^3/uL (1.8-6.8); NEUTROPHILS % (AUTO) 79 % (42-75); PLATELET COUNT 410 x10^3/uL (130-400); RED BLOOD COUNT 2.38 x10^6/uL (4.38-5.82); RED CELL DISTRIBUTION WIDTH 20.3 % (9.4-14.8)
[2019-01-04 07:47] LABS: ALBUMIN 2.7 g/dL (3.4-5.0); ANION GAP 6 mmol/L (5-15); CALCIUM 8.7 mg/dL (8.5-10.1); CHLORIDE 97 mmol/L (98-107); INTERNATIONAL NORMALIZED RATIO 3.17 (0.93-1.1); PROTHROMBIN TIME 31.8 Seconds (9.6-11.5)
[2019-01-04] MEDS: INSULIN LISPRO 100 UNITS/ML, PEN SQ-INSULIN SCH ×4 (09:00→21:58)
[2019-01-04] MEDS: SEVELAMER CARBONATE 800MG TAB PO SCH ×3 (09:12→17:53)
[2019-01-04] MEDS: LINAGLIPTIN 5 MG TAB PO SCH (09:13)
[2019-01-04] MEDS: CINACALCET 30 MG TABLET PO SCH (09:13)
[2019-01-04] MEDS: SENNA/DOCUSATE TABLET PO SCH (09:13)
[2019-01-04] MEDS: ASPIRIN 81 MG TABLET EC PO SCH (09:13)
[2019-01-04] MEDS: AMLODIPINE 5 MG TABLET PO SCH (09:13)
[2019-01-04] MEDS: OXYcodone 5 MG/5 ML ORAL.SOL UDC PO PRN (09:39)
[2019-01-04] MEDS ORDERED: WARFARIN 1 MG TABLET PO-COUM ONE (18:00)
[2019-01-04 19:18] VITALS: BP 119/64
[2019-01-05 06:07] VITALS: BP 129/76
[2019-01-05] MEDS: CARVEDILOL 3.125 MG TABLET PO SCH ×2 (06:14→17:50)
[2019-01-05] MEDS: INSULIN LISPRO 100 UNITS/ML, PEN SQ-INSULIN SCH ×3 (07:21→17:45)
[2019-01-05 07:37] LABS: INTERNATIONAL NORMALIZED RATIO 3.3 (0.93-1.1); PROTHROMBIN TIME 33.1 Seconds (9.6-11.5)
[2019-01-05 08:21] VITALS: BP 115/66
[2019-01-05] MEDS ORDERED: HOLD COUMADIN MC PRN (09:30)
[2019-01-05] MEDS: SEVELAMER CARBONATE 800MG TAB PO SCH ×4 (09:55→17:50)
[2019-01-05 13:56] VITALS: BP 116/74
[2019-01-05] MEDS: DOCUSATE 100 MG CAPSULE PO PRN (14:11)
[2019-01-05] MEDS: ASPIRIN 81 MG TABLET EC PO SCH (14:11)
[2019-01-05] MEDS: AMLODIPINE 5 MG TABLET PO SCH (14:12)
[2019-01-05] MEDS: LINAGLIPTIN 5 MG TAB PO SCH ×2 (14:12→14:15)
[2019-01-05] MEDS: CINACALCET 30 MG TABLET PO SCH (14:12)
[2019-01-05] MEDS: SENNA/DOCUSATE TABLET PO SCH ×2 (14:12→14:15)
[2019-01-05 20:20] VITALS: BP 95/52
[2019-01-06 02:48] VITALS: BP 124/78
[2019-01-06] MEDS: CARVEDILOL 3.125 MG TABLET PO SCH ×2 (06:03→18:09)
[2019-01-06 06:06] LABS: BASOPHILS % (AUTO) 1 % (0-1); EOSINOPHILS # (AUTO) 0.47 x10^3/uL (0-0.4); EOSINOPHILS % (AUTO) 6 % (1-7); LYMPHOCYTES # (AUTO) 0.61 x10^3/uL (1-3.4); LYMPHOCYTES % (AUTO) 8 % (22-44); MD NO; MEAN CORPUSCULAR HEMOGLOBIN 31.3 pg (27.5-34.5); MEAN CORPUSCULAR HGB CONC 31.4 g/dL (33.2-36.2); MEAN CORPUSCULAR VOLUME 99.6 fL (81-97); MONOCYTES # (AUTO) 0.51 x10^3/uL (0.2-0.8); MONOCYTES % (AUTO) 7 % (2-9); NEUTROPHILS # (AUTO) 5.86 x10^3/uL (1.8-6.8); NEUTROPHILS % (AUTO) 78 % (42-75); PLATELET COUNT 381 x10^3/uL (130-400); RED CELL DISTRIBUTION WIDTH 19.8 % (9.4-14.8)
[2019-01-06 06:12] LABS: INTERNATIONAL NORMALIZED RATIO 2.96 (0.93-1.1); PROTHROMBIN TIME 29.8 Seconds (9.6-11.5)
[2019-01-06 06:23] LABS: CALCIUM 8.4 mg/dL (8.5-10.1); CHLORIDE 98 mmol/L (98-107)
[2019-01-06 06:27] LABS: ANION GAP 8 mmol/L (5-15); CREATININE 3.42 mg/dL (0.7-1.3)
[2019-01-06] MEDS: LINAGLIPTIN 5 MG TAB PO SCH (08:45)
[2019-01-06] MEDS: CINACALCET 30 MG TABLET PO SCH (08:45)
[2019-01-06] MEDS: ASPIRIN 81 MG TABLET EC PO SCH (08:45)
[2019-01-06] MEDS: AMLODIPINE 5 MG TABLET PO SCH (08:45)
[2019-01-06] MEDS: SENNA/DOCUSATE TABLET PO SCH (08:46)
[2019-01-06] MEDS: SEVELAMER CARBONATE 800MG TAB PO SCH ×3 (08:46→18:05)
[2019-01-06] MEDS: DARBEPOETIN 60 MCG/ML SQ SCH (12:21)
[2019-01-06 13:02] VITALS: BP 131/73
[2019-01-06] MEDS ORDERED: WARFARIN 1 MG TABLET PO-COUM ONE (18:00)
[2019-01-06 19:49] VITALS: BP 132/76
[2019-01-07 01:38] VITALS: BP 127/73
[2019-01-07] MEDS: DOCUSATE 100 MG CAPSULE PO PRN (05:21)
[2019-01-07] MEDS: CARVEDILOL 3.125 MG TABLET PO SCH ×2 (05:21→17:01)
[2019-01-07 05:57] LABS: ANION GAP 7 mmol/L (5-15); CALCIUM 8.5 mg/dL (8.5-10.1); CHLORIDE 96 mmol/L (98-107); CREATININE 4.52 mg/dL (0.7-1.3)
[2019-01-07 06:00] LABS: INTERNATIONAL NORMALIZED RATIO 1.91 (0.93-1.1); PROTHROMBIN TIME 19.6 Seconds (9.6-11.5)
[2019-01-07 08:34] VITALS: BP_SYST 124; BP_SYST 128; BP_DIAS 66; BP_DIAS 76
[2019-01-07] MEDS: CINACALCET 30 MG TABLET PO SCH (08:54)
[2019-01-07] MEDS: LINAGLIPTIN 5 MG TAB PO SCH (08:54)
[2019-01-07] MEDS: ASPIRIN 81 MG TABLET EC PO SCH (08:54)
[2019-01-07] MEDS: SENNA/DOCUSATE TABLET PO SCH (08:54)
[2019-01-07] MEDS: SEVELAMER CARBONATE 800MG TAB PO SCH ×3 (08:54→17:00)
[2019-01-07] MEDS: AMLODIPINE 5 MG TABLET PO SCH (12:23)
[2019-01-07 13:52] VITALS: BP 102/56
[2019-01-07] MEDS ORDERED: WARFARIN 2 MG TABLET PO-COUM SCH (18:00)
[2019-01-07 19:27] VITALS: BP 169/79
[2019-01-08 02:20] VITALS: BP 137/75
[2019-01-08] MEDS: CARVEDILOL 3.125 MG TABLET PO SCH ×3 (06:08→17:44)
[2019-01-08 06:17] LABS: INTERNATIONAL NORMALIZED RATIO 1.88 (0.93-1.1); PROTHROMBIN TIME 19.3 Seconds (9.6-11.5)
[2019-01-08 07:45] VITALS: BP 108/49
[2019-01-08] MEDS: AMLODIPINE 5 MG TABLET PO SCH (08:25)
[2019-01-08] MEDS: SENNA/DOCUSATE TABLET PO SCH (08:25)
[2019-01-08] MEDS: ASPIRIN 81 MG TABLET EC PO SCH (08:25)
[2019-01-08] MEDS: SEVELAMER CARBONATE 800MG TAB PO SCH ×4 (08:25→17:32)
[2019-01-08] MEDS: LINAGLIPTIN 5 MG TAB PO SCH (08:25)
[2019-01-08] MEDS: CINACALCET 30 MG TABLET PO SCH (08:25)
[2019-01-08 13:10] VITALS: BP 123/61
[2019-01-08] MEDS: WARFARIN 3 MG TABLET PO-COUM SCH ×2 (17:31→17:44)
[2019-01-08 20:26] VITALS: BP 121/56
[2019-01-09 04:37] LABS: BASOPHILS # (AUTO) 0.06 x10^3/uL (0-0.1); BASOPHILS % (AUTO) 1 % (0-1); EOSINOPHILS # (AUTO) 0.53 x10^3/uL (0-0.4); EOSINOPHILS % (AUTO) 7 % (1-7); LYMPHOCYTES # (AUTO) 0.52 x10^3/uL (1-3.4); LYMPHOCYTES % (AUTO) 7 % (22-44); MD NO; MEAN CORPUSCULAR HEMOGLOBIN 31.6 pg (27.5-34.5); MEAN CORPUSCULAR HGB CONC 31.8 g/dL (33.2-36.2); MEAN CORPUSCULAR VOLUME 99.7 fL (81-97); MEAN PLATELET VOLUME 7.3 fL (7.4-10.4); MONOCYTES # (AUTO) 0.51 x10^3/uL (0.2-0.8); MONOCYTES % (AUTO) 7 % (2-9); NEUTROPHILS # (AUTO) 5.98 x10^3/uL (1.8-6.8); NEUTROPHILS % (AUTO) 79 % (42-75); PLATELET COUNT 356 x10^3/uL (130-400); RED CELL DISTRIBUTION WIDTH 18.1 % (9.4-14.8)
[2019-01-09 04:42] LABS: INTERNATIONAL NORMALIZED RATIO 2.04 (0.93-1.1); PROTHROMBIN TIME 20.8 Seconds (9.6-11.5)
[2019-01-09 04:45] LABS: CHLORIDE 96 mmol/L (98-107)
[2019-01-09 04:53] LABS: ALANINE AMINOTRANSFERASE 11 U/L (12-78); ALBUMIN 2.8 g/dL (3.4-5.0); ALKALINE PHOSPHATASE 107 U/L (45-117); ANION GAP 8 mmol/L (5-15); BILIRUBIN,TOTAL 1.2 mg/dL (0.2-1.0); CALCIUM 8.4 mg/dL (8.5-10.1); CREATININE 4.28 mg/dL (0.7-1.3); TOTAL PROTEIN 5.8 g/dL (6.4-8.2)
[2019-01-09] MEDS: CARVEDILOL 3.125 MG TABLET PO SCH ×2 (05:52→17:49)
[2019-01-09 07:30] VITALS: BP 120/55
[2019-01-09] MEDS: SEVELAMER CARBONATE 800MG TAB PO SCH ×3 (08:00→17:00)
[2019-01-09] MEDS: ASPIRIN 81 MG TABLET EC PO SCH (09:00)
[2019-01-09] MEDS: CINACALCET 30 MG TABLET PO SCH (09:00)
[2019-01-09] MEDS: LINAGLIPTIN 5 MG TAB PO SCH (09:00)
[2019-01-09] MEDS: SENNA/DOCUSATE TABLET PO SCH (09:00)
[2019-01-09] MEDS: AMLODIPINE 2.5 MG TABLET PO SCH (09:00)
[2019-01-09 14:10] VITALS: BP 121/76
[2019-01-09] MEDS ORDERED: WARFARIN 3 MG TABLET PO-COUM SCH (18:00)
[2019-01-09 19:08] VITALS: BP 116/57
[2019-01-10] MEDS: CARVEDILOL 3.125 MG TABLET PO SCH ×2 (06:18→17:37)
[2019-01-10 06:28] LABS: BASOPHILS # (AUTO) 0.02 x10^3/uL (0-0.1); BASOPHILS % (AUTO) 0 % (0-1); EOSINOPHILS # (AUTO) 0.34 x10^3/uL (0-0.4); EOSINOPHILS % (AUTO) 4 % (1-7); LYMPHOCYTES # (AUTO) 0.53 x10^3/uL (1-3.4); LYMPHOCYTES % (AUTO) 7 % (22-44); MD NO; MEAN CORPUSCULAR HEMOGLOBIN 31.4 pg (27.5-34.5); MEAN CORPUSCULAR HGB CONC 31.4 g/dL (33.2-36.2); MEAN CORPUSCULAR VOLUME 99.8 fL (81-97); MEAN PLATELET VOLUME 7.5 fL (7.4-10.4); MONOCYTES # (AUTO) 0.37 x10^3/uL (0.2-0.8); MONOCYTES % (AUTO) 5 % (2-9); NEUTROPHILS % (AUTO) 84 % (42-75); PLATELET COUNT 393 x10^3/uL (130-400); RED BLOOD COUNT 3.24 x10^6/uL (4.38-5.82); RED CELL DISTRIBUTION WIDTH 18.3 % (9.4-14.8)
[2019-01-10 06:35] LABS: INTERNATIONAL NORMALIZED RATIO 2.31 (0.93-1.1); PROTHROMBIN TIME 23.5 Seconds (9.6-11.5)
[2019-01-10 06:40] LABS: ALANINE AMINOTRANSFERASE 12 U/L (12-78); ALBUMIN 2.9 g/dL (3.4-5.0); ANION GAP 8 mmol/L (5-15); CALCIUM 8.9 mg/dL (8.5-10.1); CHLORIDE 99 mmol/L (98-107); CREATININE 3.57 mg/dL (0.7-1.3)
[2019-01-10 06:41] LABS: ALKALINE PHOSPHATASE 113 U/L (45-117); BILIRUBIN,TOTAL 1.3 mg/dL (0.2-1.0); TOTAL PROTEIN 6.2 g/dL (6.4-8.2)
[2019-01-10 08:00] VITALS: BP 113/41
[2019-01-10] MEDS: SEVELAMER CARBONATE 800MG TAB PO SCH ×3 (08:08→17:36)
[2019-01-10] MEDS: ASPIRIN 81 MG TABLET EC PO SCH (08:21)
[2019-01-10] MEDS: SENNA/DOCUSATE TABLET PO SCH (08:21)
[2019-01-10] MEDS: AMLODIPINE 2.5 MG TABLET PO SCH (08:22)
[2019-01-10] MEDS: CINACALCET 30 MG TABLET PO SCH (08:22)
[2019-01-10] MEDS: LINAGLIPTIN 5 MG TAB PO SCH (08:22)
[2019-01-10 12:44] VITALS: BP 127/67
[2019-01-10] MEDS ORDERED: WARFARIN 3 MG TABLET PO-COUM SCH (18:00)
[2019-01-10 19:56] VITALS: BP 101/49
[2019-01-11 01:01] VITALS: BP 126/59
[2019-01-11] MEDS: CARVEDILOL 3.125 MG TABLET PO SCH ×2 (05:23→17:23)
[2019-01-11 05:56] LABS: INTERNATIONAL NORMALIZED RATIO 3.11 (0.93-1.1); PROTHROMBIN TIME 31.3 Seconds (9.6-11.5)
[2019-01-11 07:24] VITALS: BP 131/60
[2019-01-11] MEDS ORDERED: HOLD COUMADIN MC PRN (08:00)
[2019-01-11] MEDS: ASPIRIN 81 MG TABLET EC PO SCH (09:00)
[2019-01-11] MEDS: AMLODIPINE 2.5 MG TABLET PO SCH (09:01)
[2019-01-11] MEDS: SENNA/DOCUSATE TABLET PO SCH (09:01)
[2019-01-11] MEDS: CINACALCET 30 MG TABLET PO SCH (09:01)
[2019-01-11] MEDS: LINAGLIPTIN 5 MG TAB PO SCH (09:01)
[2019-01-11] MEDS: SEVELAMER CARBONATE 800MG TAB PO SCH ×3 (09:01→17:23)
[2019-01-11 17:23] VITALS: BP 135/75
[2019-01-11 20:34] VITALS: BP 131/74
[2019-01-12 01:30] VITALS: BP 149/81
[2019-01-12 05:38] LABS: INTERNATIONAL NORMALIZED RATIO 3.54 (0.93-1.1); PROTHROMBIN TIME 35.4 Seconds (9.6-11.5)
[2019-01-12 05:59] VITALS: BP 138/78
[2019-01-12] MEDS: CARVEDILOL 3.125 MG TABLET PO SCH ×2 (06:01→17:11)
[2019-01-12] MEDS: SEVELAMER CARBONATE 800MG TAB PO SCH ×3 (08:00→17:11)
[2019-01-12] MEDS: INSULIN LISPRO 100 UNITS/ML, PEN SQ-INSULIN SCH ×4 (08:00→21:00)
[2019-01-12] MEDS ORDERED: HOLD COUMADIN MC PRN (08:00)
[2019-01-12] MEDS: AMLODIPINE 2.5 MG TABLET PO SCH (08:30)
[2019-01-12] MEDS: ASPIRIN 81 MG TABLET EC PO SCH (08:30)
[2019-01-12] MEDS: SENNA/DOCUSATE TABLET PO SCH (08:31)
[2019-01-12 11:26] VITALS: BP 121/68
[2019-01-12] MEDS: CINACALCET 30 MG TABLET PO SCH (11:33)
[2019-01-12 17:05] VITALS: BP 140/83
[2019-01-12 19:23] VITALS: BP 133/60
[2019-01-13 02:49] VITALS: BP 123/77
[2019-01-13 05:46] LABS: INTERNATIONAL NORMALIZED RATIO 3.34 (0.93-1.1); PROTHROMBIN TIME 33.5 Seconds (9.6-11.5)
[2019-01-13] MEDS: CARVEDILOL 3.125 MG TABLET PO SCH ×2 (06:00→17:33)
[2019-01-13] MEDS: INSULIN LISPRO 100 UNITS/ML, PEN SQ-INSULIN SCH ×4 (07:46→19:48)
[2019-01-13] MEDS ORDERED: DEXTROSE 4 GM TAB.CHEW PO PRN (08:00)
[2019-01-13] MEDS ORDERED: HOLD COUMADIN MC PRN (08:00)
[2019-01-13] MEDS ORDERED: DEXTROSE 50%, 50ML SYRINGE IVPush PRN (08:00)
[2019-01-13] MEDS ORDERED: GLUCAGON 1 MG IM PRN (08:00)
[2019-01-13 09:12] VITALS: BP 114/73
[2019-01-13] MEDS: ASPIRIN 81 MG TABLET EC PO SCH (09:13)
[2019-01-13] MEDS: CINACALCET 30 MG TABLET PO SCH (09:13)
[2019-01-13] MEDS: AMLODIPINE 2.5 MG TABLET PO SCH (09:14)
[2019-01-13] MEDS: SENNA/DOCUSATE TABLET PO SCH (09:14)
[2019-01-13] MEDS: SODIUM CHLORIDE FLUSH 10ML SYR IVF SCH ×2 (09:14→20:30)
[2019-01-13] MEDS: SEVELAMER CARBONATE 800MG TAB PO SCH ×4 (09:14→17:33)
[2019-01-13 12:16] VITALS: BP 136/67
[2019-01-13] MEDS: DARBEPOETIN 60 MCG/ML SQ SCH (12:52)
[2019-01-13 17:32] VITALS: BP 136/87
[2019-01-13 18:35] VITALS: BP 110/68
[2019-01-14 01:58] VITALS: BP 146/76
[2019-01-14 05:43] LABS: INTERNATIONAL NORMALIZED RATIO 2.1 (0.93-1.1); PROTHROMBIN TIME 21.4 Seconds (9.6-11.5)
[2019-01-14] MEDS: CARVEDILOL 3.125 MG TABLET PO SCH ×2 (05:44→17:56)
[2019-01-14] MEDS: INSULIN LISPRO 100 UNITS/ML, PEN SQ-INSULIN SCH ×4 (07:00→20:11)
[2019-01-14 07:25] VITALS: BP 142/72
[2019-01-14] MEDS: SEVELAMER CARBONATE 800MG TAB PO SCH ×3 (08:00→17:56)
[2019-01-14] MEDS: SODIUM CHLORIDE FLUSH 10ML SYR IVF SCH ×2 (09:00→21:45)
[2019-01-14] MEDS: ASPIRIN 81 MG TABLET EC PO SCH (12:19)
[2019-01-14] MEDS: CINACALCET 30 MG TABLET PO SCH (12:19)
[2019-01-14] MEDS: SENNA/DOCUSATE TABLET PO SCH (12:19)
[2019-01-14] MEDS: AMLODIPINE 2.5 MG TABLET PO SCH (12:19)
[2019-01-14 13:39] VITALS: BP 131/77
[2019-01-14] MEDS ORDERED: WARFARIN 1 MG TABLET PO-COUM ONE (17:50)
[2019-01-14] MEDS ORDERED: WARFARIN 2.5 MG TABLET PO-COUM ONE (18:00)
[2019-01-14 20:14] VITALS: BP 128/79
[2019-01-15 02:09] VITALS: BP 130/76
[2019-01-15 05:30] LABS: INTERNATIONAL NORMALIZED RATIO 1.54 (0.93-1.1); PROTHROMBIN TIME 15.9 Seconds (9.6-11.5)
[2019-01-15] MEDS: CARVEDILOL 3.125 MG TABLET PO SCH ×2 (05:32→19:26)
[2019-01-15 06:59] VITALS: BP 109/65
[2019-01-15] MEDS: INSULIN LISPRO 100 UNITS/ML, PEN SQ-INSULIN SCH ×4 (08:33→21:00)
[2019-01-15] MEDS: AMLODIPINE 2.5 MG TABLET PO SCH (08:38)
[2019-01-15] MEDS: SEVELAMER CARBONATE 800MG TAB PO SCH ×4 (08:38→17:00)
[2019-01-15] MEDS: SENNA/DOCUSATE TABLET PO SCH (08:38)
[2019-01-15] MEDS: CINACALCET 30 MG TABLET PO SCH (08:38)
[2019-01-15] MEDS: ASPIRIN 81 MG TABLET EC PO SCH (08:38)
[2019-01-15] MEDS: SODIUM CHLORIDE FLUSH 10ML SYR IVF SCH ×2 (08:39→21:06)
[2019-01-15 12:55] VITALS: BP 130/78
[2019-01-15] MEDS ORDERED: WARFARIN 2.5 MG TABLET PO-COUM ONE (18:00)
[2019-01-15 18:32] VITALS: BP 139/67
[2019-01-16 01:06] VITALS: BP 141/61
[2019-01-16 05:13] LABS: INTERNATIONAL NORMALIZED RATIO 1.61 (0.93-1.1); PROTHROMBIN TIME 16.6 Seconds (9.6-11.5)
[2019-01-16] MEDS: CARVEDILOL 3.125 MG TABLET PO SCH ×2 (05:48→18:00)
[2019-01-16 07:49] VITALS: BP 96/54
[2019-01-16] MEDS: ASPIRIN 81 MG TABLET EC PO SCH (08:32)
[2019-01-16] MEDS: SEVELAMER CARBONATE 800MG TAB PO SCH ×3 (08:32→18:31)
[2019-01-16] MEDS: CINACALCET 30 MG TABLET PO SCH (08:32)
[2019-01-16] MEDS: AMLODIPINE 2.5 MG TABLET PO SCH (08:33)
[2019-01-16] MEDS: INSULIN LISPRO 100 UNITS/ML, PEN SQ-INSULIN SCH ×4 (08:33→20:00)
[2019-01-16] MEDS: SENNA/DOCUSATE TABLET PO SCH (08:33)
[2019-01-16] MEDS: SODIUM CHLORIDE FLUSH 10ML SYR IVF SCH ×2 (08:33→20:00)
[2019-01-16 11:56] VITALS: BP 120/53
[2019-01-16] MEDS ORDERED: WARFARIN 5 MG TABLET PO-COUM ONE (17:42)
[2019-01-16] MEDS ORDERED: WARFARIN 2.5 MG TABLET PO-COUM ONE (18:00)
[2019-01-16 21:22] VITALS: BP 147/77
[2019-01-17 00:44] VITALS: BP 151/83
[2019-01-17] MEDS: CARVEDILOL 3.125 MG TABLET PO SCH ×2 (05:52→17:58)
[2019-01-17 06:22] LABS: BASOPHILS # (AUTO) 0.09 x10^3/uL (0-0.1); BASOPHILS % (AUTO) 1 % (0-1); EOSINOPHILS # (AUTO) 0.31 x10^3/uL (0-0.4); EOSINOPHILS % (AUTO) 4 % (1-7); LYMPHOCYTES # (AUTO) 0.62 x10^3/uL (1-3.4); LYMPHOCYTES % (AUTO) 9 % (22-44); MD NO; MEAN CORPUSCULAR HEMOGLOBIN 29.7 pg (27.5-34.5); MEAN CORPUSCULAR HGB CONC 31.3 g/dL (33.2-36.2); MEAN CORPUSCULAR VOLUME 94.9 fL (81-97); MEAN PLATELET VOLUME 7.2 fL (7.4-10.4); MONOCYTES # (AUTO) 0.42 x10^3/uL (0.2-0.8); MONOCYTES % (AUTO) 6 % (2-9); NEUTROPHILS # (AUTO) 5.63 x10^3/uL (1.8-6.8); NEUTROPHILS % (AUTO) 80 % (42-75); PLATELET COUNT 310 x10^3/uL (130-400); RED BLOOD COUNT 3.74 x10^6/uL (4.38-5.82); RED CELL DISTRIBUTION WIDTH 17.2 % (9.4-14.8)
[2019-01-17 06:28] LABS: INTERNATIONAL NORMALIZED RATIO 1.81 (0.93-1.1); PROTHROMBIN TIME 18.6 Seconds (9.6-11.5)
[2019-01-17 06:33] LABS: CHLORIDE 97 mmol/L (98-107)
[2019-01-17 06:56] LABS: ALANINE AMINOTRANSFERASE 15 U/L (12-78); ALBUMIN 2.9 g/dL (3.4-5.0); ALKALINE PHOSPHATASE 108 U/L (45-117); ANION GAP 8 mmol/L (5-15); BILIRUBIN,TOTAL 1.1 mg/dL (0.2-1.0); CALCIUM 8.9 mg/dL (8.5-10.1); CREATININE 3.48 mg/dL (0.7-1.3); TOTAL PROTEIN 6.2 g/dL (6.4-8.2)
[2019-01-17] MEDS: INSULIN LISPRO 100 UNITS/ML, PEN SQ-INSULIN SCH ×2 (07:00→20:38)
[2019-01-17 08:00] VITALS: BP 134/74
[2019-01-17] MEDS: CINACALCET 30 MG TABLET PO SCH (08:23)
[2019-01-17] MEDS: ASPIRIN 81 MG TABLET EC PO SCH (08:23)
[2019-01-17] MEDS: SENNA/DOCUSATE TABLET PO SCH (08:23)
[2019-01-17] MEDS: SEVELAMER CARBONATE 800MG TAB PO SCH (08:23)
[2019-01-17] MEDS: AMLODIPINE 2.5 MG TABLET PO SCH (08:23)
[2019-01-17] MEDS: SODIUM CHLORIDE FLUSH 10ML SYR IVF SCH ×2 (09:25→20:57)
[2019-01-17 14:00] VITALS: BP 128/68
[2019-01-17] MEDS ORDERED: WARFARIN 2.5 MG TABLET PO-COUM ONE (18:00)
[2019-01-18 00:43] VITALS: BP 155/90
[2019-01-18] MEDS: CARVEDILOL 3.125 MG TABLET PO SCH ×2 (05:24→17:37)
[2019-01-18 06:17] LABS: BASOPHILS # (AUTO) 0.07 x10^3/uL (0-0.1); BASOPHILS % (AUTO) 1 % (0-1); EOSINOPHILS # (AUTO) 0.33 x10^3/uL (0-0.4); EOSINOPHILS % (AUTO) 5 % (1-7); LYMPHOCYTES # (AUTO) 0.74 x10^3/uL (1-3.4); LYMPHOCYTES % (AUTO) 10 % (22-44); MD NO; MEAN CORPUSCULAR HEMOGLOBIN 30.3 pg (27.5-34.5); MEAN CORPUSCULAR HGB CONC 32.1 g/dL (33.2-36.2); MEAN CORPUSCULAR VOLUME 94.5 fL (81-97); MEAN PLATELET VOLUME 7.1 fL (7.4-10.4); MONOCYTES # (AUTO) 0.48 x10^3/uL (0.2-0.8); MONOCYTES % (AUTO) 7 % (2-9); NEUTROPHILS % (AUTO) 78 % (42-75); PLATELET COUNT 331 x10^3/uL (130-400); RED BLOOD COUNT 3.82 x10^6/uL (4.38-5.82); RED CELL DISTRIBUTION WIDTH 16.9 % (9.4-14.8)
[2019-01-18 06:21] LABS: INTERNATIONAL NORMALIZED RATIO 2.29 (0.93-1.1); PROTHROMBIN TIME 23.3 Seconds (9.6-11.5)
[2019-01-18 06:27] LABS: ALBUMIN 2.9 g/dL (3.4-5.0); ANION GAP 12 mmol/L (5-15); CALCIUM 8.9 mg/dL (8.5-10.1); CHLORIDE 93 mmol/L (98-107)
[2019-01-18 06:32] LABS: ALANINE AMINOTRANSFERASE 14 U/L (12-78); ALKALINE PHOSPHATASE 108 U/L (45-117); CREATININE 4.42 mg/dL (0.7-1.3); TOTAL PROTEIN 6.1 g/dL (6.4-8.2)
[2019-01-18 07:47] VITALS: BP 156/81
[2019-01-18] MEDS: INSULIN LISPRO 100 UNITS/ML, PEN SQ-INSULIN SCH ×2 (08:15→21:00)
[2019-01-18] MEDS: CINACALCET 30 MG TABLET PO SCH (09:22)
[2019-01-18] MEDS: SENNA/DOCUSATE TABLET PO SCH (09:22)
[2019-01-18] MEDS: ASPIRIN 81 MG TABLET EC PO SCH (09:22)
[2019-01-18] MEDS: AMLODIPINE 2.5 MG TABLET PO SCH (09:22)
[2019-01-18] MEDS: SODIUM CHLORIDE FLUSH 10ML SYR IVF SCH ×2 (09:23→21:00)
[2019-01-18 13:56] VITALS: BP 113/63
[2019-01-18] MEDS ORDERED: WARFARIN 2.5 MG TABLET PO-COUM ONE (18:00)
[2019-01-18 23:40] VITALS: BP 152/91
[2019-01-19 03:46] VITALS: BP 151/71
[2019-01-19] MEDS: CARVEDILOL 3.125 MG TABLET PO SCH ×2 (05:28→17:22)
[2019-01-19 06:37] LABS: INTERNATIONAL NORMALIZED RATIO 2.07 (0.93-1.1); PROTHROMBIN TIME 21.1 Seconds (9.6-11.5)
[2019-01-19 07:05] VITALS: BP 146/76
[2019-01-19] MEDS: INSULIN LISPRO 100 UNITS/ML, PEN SQ-INSULIN SCH ×2 (09:25→20:22)
[2019-01-19 12:30] VITALS: BP 143/83
[2019-01-19] MEDS: SODIUM CHLORIDE FLUSH 10ML SYR IVF SCH ×2 (12:55→20:21)
[2019-01-19] MEDS: CINACALCET 30 MG TABLET PO SCH (12:55)
[2019-01-19] MEDS: SENNA/DOCUSATE TABLET PO SCH (12:55)
[2019-01-19] MEDS: ASPIRIN 81 MG TABLET EC PO SCH (12:55)
[2019-01-19] MEDS: AMLODIPINE 2.5 MG TABLET PO SCH (12:56)
[2019-01-19] MEDS: ERGOCALCIFEROL 50,000 UNIT CAPSULE PO SCH (12:56)
[2019-01-19 17:19] VITALS: BP 138/80
[2019-01-19] MEDS ORDERED: WARFARIN 2 MG TABLET PO-COUM ONE (18:00)
[2019-01-19 19:18] VITALS: BP 128/76
[2019-01-20 00:55] VITALS: BP 134/82
[2019-01-20] MEDS: CARVEDILOL 3.125 MG TABLET PO SCH ×2 (05:38→17:10)
[2019-01-20 06:51] VITALS: BP 138/87
[2019-01-20 08:39] LABS: INTERNATIONAL NORMALIZED RATIO 1.74 (0.93-1.1); PROTHROMBIN TIME 17.9 Seconds (9.6-11.5)
[2019-01-20] MEDS: INSULIN LISPRO 100 UNITS/ML, PEN SQ-INSULIN SCH ×2 (10:13→21:00)
[2019-01-20] MEDS: AMLODIPINE 2.5 MG TABLET PO SCH (10:14)
[2019-01-20] MEDS: SODIUM CHLORIDE FLUSH 10ML SYR IVF SCH ×2 (10:14→21:16)
[2019-01-20] MEDS: SENNA/DOCUSATE TABLET PO SCH (10:14)
[2019-01-20] MEDS: ASPIRIN 81 MG TABLET EC PO SCH (10:14)
[2019-01-20] MEDS: CINACALCET 30 MG TABLET PO SCH (10:14)
[2019-01-20] MEDS: DARBEPOETIN 60 MCG/ML SQ SCH (13:33)
[2019-01-20 13:44] VITALS: BP 124/64
[2019-01-20] MEDS ORDERED: WARFARIN 2 MG TABLET PO-COUM ONE (18:30)
[2019-01-20 18:52] VITALS: BP 157/83
[2019-01-20] MEDS ORDERED: OMNIPAQUE 350 MG/ML, 100ML BOTTLE ONE (22:52)
[2019-01-21 00:51] VITALS: BP 138/70
[2019-01-21 05:31] VITALS: BP 139/70
[2019-01-21] MEDS: CARVEDILOL 3.125 MG TABLET PO SCH ×2 (05:39→18:00)
[2019-01-21 05:45] LABS: BASOPHILS # (AUTO) 0.04 x10^3/uL (0-0.1); BASOPHILS % (AUTO) 1 % (0-1); EOSINOPHILS # (AUTO) 0.22 x10^3/uL (0-0.4); EOSINOPHILS % (AUTO) 4 % (1-7); LYMPHOCYTES # (AUTO) 0.68 x10^3/uL (1-3.4); LYMPHOCYTES % (AUTO) 12 % (22-44); MD NO; MEAN CORPUSCULAR HGB CONC 30.8 g/dL (33.2-36.2); MEAN CORPUSCULAR VOLUME 94.1 fL (81-97); MEAN PLATELET VOLUME 7.1 fL (7.4-10.4); MONOCYTES # (AUTO) 0.44 x10^3/uL (0.2-0.8); MONOCYTES % (AUTO) 8 % (2-9); NEUTROPHILS # (AUTO) 4.37 x10^3/uL (1.8-6.8); NEUTROPHILS % (AUTO) 76 % (42-75); PLATELET COUNT 306 x10^3/uL (130-400); RED BLOOD COUNT 4.02 x10^6/uL (4.38-5.82); RED CELL DISTRIBUTION WIDTH 17.1 % (9.4-14.8)
[2019-01-21 05:54] LABS: INTERNATIONAL NORMALIZED RATIO 2.28 (0.93-1.1); PROTHROMBIN TIME 23.2 Seconds (9.6-11.5)
[2019-01-21 06:03] LABS: ANION GAP 8 mmol/L (5-15); CALCIUM 8.4 mg/dL (8.5-10.1); CHLORIDE 95 mmol/L (98-107)
[2019-01-21 06:08] LABS: ALANINE AMINOTRANSFERASE 15 U/L (12-78); ALKALINE PHOSPHATASE 108 U/L (45-117); BILIRUBIN,TOTAL 0.9 mg/dL (0.2-1.0); CREATININE 4.62 mg/dL (0.7-1.3)
[2019-01-21 07:10] VITALS: BP 135/79
[2019-01-21] MEDS ORDERED: VANCOMYCIN PER PHARMACY MC PRN (08:00)
[2019-01-21] MEDS ORDERED: ZOSYN PER PHARMACY MC PRN (08:00)
[2019-01-21] MEDS ORDERED: PHARMACOKINETIC CONSULTATION MC ONE (08:30)
[2019-01-21] MEDS ORDERED: PIPERACILLIN/TAZO 0.75 GM in SODIUM CHLORIDE 0.9% 50 ML IV SCH (08:30)
[2019-01-21] MEDS: INSULIN LISPRO 100 UNITS/ML, PEN SQ-INSULIN SCH ×2 (09:00→20:10)
[2019-01-21] MEDS ORDERED: VANCOMYCIN PMX 1GM/200ML 200 ML IVPB ONE (09:00)
[2019-01-21] MEDS: SODIUM CHLORIDE FLUSH 10ML SYR IVF SCH ×2 (09:00→20:12)
[2019-01-21] MEDS: PIPERACILLIN/TAZO/PMX 2.25GM 50 ML IVPB SCH ×2 (11:31→23:03)
[2019-01-21] MEDS: ASPIRIN 81 MG TABLET EC PO SCH (11:32)
[2019-01-21] MEDS: SENNA/DOCUSATE TABLET PO SCH (11:32)
[2019-01-21] MEDS: AMLODIPINE 2.5 MG TABLET PO SCH (11:32)
[2019-01-21] MEDS: CINACALCET 30 MG TABLET PO SCH (11:59)
[2019-01-21 12:00] VITALS: BP 112/66
[2019-01-21 17:58] VITALS: BP 138/84
[2019-01-21] MEDS ORDERED: WARFARIN 3 MG TABLET PO-COUM SCH (18:00)
[2019-01-21 19:58] VITALS: BP 132/79
[2019-01-22 00:45] VITALS: BP 128/69
[2019-01-22 04:50] LABS: BASOPHILS # (AUTO) 0.06 x10^3/uL (0-0.1); BASOPHILS % (AUTO) 1 % (0-1); EOSINOPHILS # (AUTO) 0.26 x10^3/uL (0-0.4); EOSINOPHILS % (AUTO) 4 % (1-7); LYMPHOCYTES # (AUTO) 0.64 x10^3/uL (1-3.4); LYMPHOCYTES % (AUTO) 10 % (22-44); MD NO; MEAN CORPUSCULAR HEMOGLOBIN 29.6 pg (27.5-34.5); MEAN CORPUSCULAR HGB CONC 31.3 g/dL (33.2-36.2); MEAN CORPUSCULAR VOLUME 94.6 fL (81-97); MEAN PLATELET VOLUME 7.4 fL (7.4-10.4); MONOCYTES # (AUTO) 0.52 x10^3/uL (0.2-0.8); MONOCYTES % (AUTO) 8 % (2-9); NEUTROPHILS # (AUTO) 5.21 x10^3/uL (1.8-6.8); NEUTROPHILS % (AUTO) 78 % (42-75); PLATELET COUNT 302 x10^3/uL (130-400); RED BLOOD COUNT 3.97 x10^6/uL (4.38-5.82); RED CELL DISTRIBUTION WIDTH 17.4 % (9.4-14.8)
[2019-01-22 04:58] LABS: INTERNATIONAL NORMALIZED RATIO 2.74 (0.93-1.1); PROTHROMBIN TIME 27.7 Seconds (9.6-11.5)
[2019-01-22 05:02] LABS: ANION GAP 7 mmol/L (5-15); CALCIUM 8.4 mg/dL (8.5-10.1); CHLORIDE 94 mmol/L (98-107)
[2019-01-22 05:06] LABS: ALANINE AMINOTRANSFERASE 15 U/L (12-78); ALKALINE PHOSPHATASE 105 U/L (45-117); BILIRUBIN,TOTAL 1.1 mg/dL (0.2-1.0); CREATININE 3.41 mg/dL (0.7-1.3)
[2019-01-22] MEDS: CARVEDILOL 3.125 MG TABLET PO SCH ×2 (05:59→17:44)
[2019-01-22] MEDS: INSULIN LISPRO 100 UNITS/ML, PEN SQ-INSULIN SCH ×2 (08:53→21:00)
[2019-01-22] MEDS: SODIUM CHLORIDE FLUSH 10ML SYR IVF SCH ×2 (09:00→21:22)
[2019-01-22 09:33] VITALS: BP 152/77
[2019-01-22] MEDS: AMLODIPINE 2.5 MG TABLET PO SCH (09:48)
[2019-01-22] MEDS: SENNA/DOCUSATE TABLET PO SCH (09:48)
[2019-01-22] MEDS: CINACALCET 30 MG TABLET PO SCH (09:48)
[2019-01-22] MEDS: ASPIRIN 81 MG TABLET EC PO SCH (09:48)
[2019-01-22] MEDS ORDERED: LIDOCAINE-MPF 1%, 5ML ONE (09:53)
[2019-01-22] MEDS: PIPERACILLIN/TAZO/PMX 2.25GM 50 ML IVPB SCH (13:18)
[2019-01-22 13:53] VITALS: BP 112/56
[2019-01-22] MEDS ORDERED: WARFARIN 5 MG TABLET PO-COUM ONE (17:41)
[2019-01-22] MEDS ORDERED: WARFARIN 2.5 MG TABLET PO-COUM SCH (18:00)
[2019-01-22 19:29] VITALS: BP 128/72
[2019-01-23] MEDS: PIPERACILLIN/TAZO/PMX 2.25GM 50 ML IVPB SCH ×2 (00:58→13:11)
[2019-01-23 01:44] VITALS: BP 115/82
[2019-01-23] MEDS: CARVEDILOL 3.125 MG TABLET PO SCH ×2 (05:57→17:51)
[2019-01-23 06:12] LABS: INTERNATIONAL NORMALIZED RATIO 3.89 (0.93-1.1); PROTHROMBIN TIME 38.8 Seconds (9.6-11.5)
[2019-01-23] MEDS: INSULIN LISPRO 100 UNITS/ML, PEN SQ-INSULIN SCH ×2 (09:00→21:00)
[2019-01-23] MEDS: SENNA/DOCUSATE TABLET PO SCH (09:00)
[2019-01-23] MEDS: SODIUM CHLORIDE FLUSH 10ML SYR IVF SCH ×2 (09:59→21:23)
[2019-01-23 11:20] VITALS: BP 103/56
[2019-01-23 12:53] VITALS: BP 140/65
[2019-01-23] MEDS: CINACALCET 30 MG TABLET PO SCH (13:08)
[2019-01-23] MEDS: AMLODIPINE 2.5 MG TABLET PO SCH (13:08)
[2019-01-23] MEDS: ASPIRIN 81 MG TABLET EC PO SCH (13:08)
[2019-01-23 18:28] VITALS: BP 135/65
[2019-01-24 00:04] VITALS: BP 118/69
[2019-01-24] MEDS: PIPERACILLIN/TAZO/PMX 2.25GM 50 ML IVPB SCH ×2 (01:33→12:52)
[2019-01-24] MEDS: CARVEDILOL 3.125 MG TABLET PO SCH ×2 (05:08→18:39)
[2019-01-24 05:14] LABS: INTERNATIONAL NORMALIZED RATIO 2.48 (0.93-1.1); PROTHROMBIN TIME 25.1 Seconds (9.6-11.5)
[2019-01-24] MEDS: INSULIN LISPRO 100 UNITS/ML, PEN SQ-INSULIN SCH ×2 (08:39→19:58)
[2019-01-24] MEDS: AMLODIPINE 2.5 MG TABLET PO SCH (08:41)
[2019-01-24] MEDS: CINACALCET 30 MG TABLET PO SCH (08:41)
[2019-01-24] MEDS: SENNA/DOCUSATE TABLET PO SCH (08:42)
[2019-01-24] MEDS: ASPIRIN 81 MG TABLET EC PO SCH (08:42)
[2019-01-24 08:47] VITALS: BP 157/75
[2019-01-24] MEDS ORDERED: VANCOMYCIN PMX 1GM/200ML 200 ML IVPB ONE (09:00)
[2019-01-24] MEDS: SODIUM CHLORIDE FLUSH 10ML SYR IVF SCH ×2 (09:00→19:58)
[2019-01-24 13:39] VITALS: BP 128/70
[2019-01-24] MEDS ORDERED: WARFARIN 2.5 MG TABLET PO-COUM SCH (18:00)
[2019-01-24 18:30] VITALS: BP 144/62
[2019-01-24 20:00] VITALS: BP 134/64
[2019-01-25] MEDS: PIPERACILLIN/TAZO/PMX 2.25GM 50 ML IVPB SCH ×2 (01:13→13:34)
[2019-01-25 01:17] VITALS: BP 150/85
[2019-01-25] MEDS: CARVEDILOL 3.125 MG TABLET PO SCH ×2 (05:30→17:43)
[2019-01-25 05:58] LABS: BASOPHILS # (AUTO) 0.11 x10^3/uL (0-0.1); BASOPHILS % (AUTO) 2 % (0-1); EOSINOPHILS # (AUTO) 0.26 x10^3/uL (0-0.4); EOSINOPHILS % (AUTO) 4 % (1-7); LYMPHOCYTES # (AUTO) 0.61 x10^3/uL (1-3.4); LYMPHOCYTES % (AUTO) 10 % (22-44); MD NO; MEAN CORPUSCULAR HEMOGLOBIN 29.4 pg (27.5-34.5); MEAN CORPUSCULAR HGB CONC 31.3 g/dL (33.2-36.2); MEAN CORPUSCULAR VOLUME 93.7 fL (81-97); MEAN PLATELET VOLUME 7.4 fL (7.4-10.4); MONOCYTES # (AUTO) 0.46 x10^3/uL (0.2-0.8); MONOCYTES % (AUTO) 8 % (2-9); NEUTROPHILS # (AUTO) 4.54 x10^3/uL (1.8-6.8); NEUTROPHILS % (AUTO) 76 % (42-75); PLATELET COUNT 281 x10^3/uL (130-400); RED BLOOD COUNT 4.01 x10^6/uL (4.38-5.82); RED CELL DISTRIBUTION WIDTH 17.3 % (9.4-14.8)
[2019-01-25 06:12] LABS: ALANINE AMINOTRANSFERASE 10 U/L (12-78); ALBUMIN 2.9 g/dL (3.4-5.0); ANION GAP 14 mmol/L (5-15); CALCIUM 8.5 mg/dL (8.5-10.1); CHLORIDE 93 mmol/L (98-107)
[2019-01-25 06:15] LABS: ALKALINE PHOSPHATASE 84 U/L (45-117); BILIRUBIN,TOTAL 1.4 mg/dL (0.2-1.0); CREATININE 4.11 mg/dL (0.7-1.3); INTERNATIONAL NORMALIZED RATIO 2.29 (0.93-1.1); PROTHROMBIN TIME 23.3 Seconds (9.6-11.5); TOTAL PROTEIN 6.1 g/dL (6.4-8.2)
[2019-01-25 07:00] VITALS: BP 114/59
[2019-01-25] MEDS: AMLODIPINE 2.5 MG TABLET PO SCH ×2 (09:00→11:29)
[2019-01-25] MEDS: INSULIN LISPRO 100 UNITS/ML, PEN SQ-INSULIN SCH ×2 (09:00→20:33)
[2019-01-25] MEDS: SODIUM CHLORIDE FLUSH 10ML SYR IVF SCH ×2 (09:00→20:33)
[2019-01-25] MEDS: ASPIRIN 81 MG TABLET EC PO SCH ×2 (09:00→11:30)
[2019-01-25] MEDS: SENNA/DOCUSATE TABLET PO SCH ×2 (09:00→11:30)
[2019-01-25] MEDS: CINACALCET 30 MG TABLET PO SCH ×2 (09:00→11:29)
[2019-01-25] MEDS ORDERED: LIDOCAINE-MPF 1%, 5ML ONE (10:37)
[2019-01-25 13:12] VITALS: BP 122/75
[2019-01-25] MEDS ORDERED: WARFARIN 3 MG TABLET PO-COUM ONE (18:00)
[2019-01-25 19:35] VITALS: BP 125/73
[2019-01-26] MEDS: PIPERACILLIN/TAZO/PMX 2.25GM 50 ML IVPB SCH ×2 (01:56→13:48)
[2019-01-26 02:00] VITALS: BP 145/81
[2019-01-26 05:45] VITALS: BP 166/80
[2019-01-26] MEDS: CARVEDILOL 3.125 MG TABLET PO SCH ×2 (05:53→17:22)
[2019-01-26 06:04] LABS: INTERNATIONAL NORMALIZED RATIO 3.02 (0.93-1.1); PROTHROMBIN TIME 30.4 Seconds (9.6-11.5)
[2019-01-26 07:20] VITALS: BP 158/80
[2019-01-26] MEDS: INSULIN LISPRO 100 UNITS/ML, PEN SQ-INSULIN SCH ×2 (09:00→20:30)
[2019-01-26] MEDS ORDERED: LIDOCAINE-MPF 1%, 5ML ONE (10:40)
[2019-01-26 13:45] VITALS: BP 147/85
[2019-01-26] MEDS: SODIUM CHLORIDE FLUSH 10ML SYR IVF SCH ×2 (13:48→20:30)
[2019-01-26] MEDS: ERGOCALCIFEROL 50,000 UNIT CAPSULE PO SCH (17:25)
[2019-01-26] MEDS ORDERED: WARFARIN 2 MG TABLET PO-COUM ONE (18:00)
[2019-01-26 19:58] VITALS: BP 146/78
[2019-01-27] MEDS: PIPERACILLIN/TAZO/PMX 2.25GM 50 ML IVPB SCH ×2 (01:29→13:07)
[2019-01-27 02:02] VITALS: BP 156/79
[2019-01-27] MEDS: CARVEDILOL 3.125 MG TABLET PO SCH ×3 (05:05→17:16)
[2019-01-27 07:30] VITALS: BP 149/71
[2019-01-27] MEDS: INSULIN LISPRO 100 UNITS/ML, PEN SQ-INSULIN SCH ×2 (08:11→20:50)
[2019-01-27 10:10] LABS: INTERNATIONAL NORMALIZED RATIO 3.13 (0.93-1.1); PROTHROMBIN TIME 31.5 Seconds (9.6-11.5)
[2019-01-27] MEDS: SENNA/DOCUSATE TABLET PO SCH (10:49)
[2019-01-27] MEDS: AMLODIPINE 2.5 MG TABLET PO SCH (11:00)
[2019-01-27] MEDS: CINACALCET 30 MG TABLET PO SCH (11:00)
[2019-01-27] MEDS: ASPIRIN 81 MG TABLET EC PO SCH (11:00)
[2019-01-27] MEDS: SODIUM CHLORIDE FLUSH 10ML SYR IVF SCH ×2 (11:01→20:50)
[2019-01-27] MEDS: DARBEPOETIN 60 MCG/ML SQ SCH (13:07)
[2019-01-27 14:43] VITALS: BP 148/76
[2019-01-27 17:21] LABS: HCT (SEDRATE) 38.4 % (39.2-51.8)
[2019-01-27] MEDS ORDERED: WARFARIN 1 MG TABLET PO-COUM ONE (18:00)
[2019-01-27 19:37] VITALS: BP 125/80
[2019-01-28 00:22] VITALS: BP 132/80
[2019-01-28] MEDS: PIPERACILLIN/TAZO/PMX 2.25GM 50 ML IVPB SCH ×2 (01:26→12:57)
[2019-01-28] MEDS: CARVEDILOL 3.125 MG TABLET PO SCH ×2 (05:05→17:54)
[2019-01-28 05:26] LABS: BASOPHILS % (AUTO) 2 % (0-1); EOSINOPHILS # (AUTO) 0.28 x10^3/uL (0-0.4); EOSINOPHILS % (AUTO) 5 % (1-7); LYMPHOCYTES # (AUTO) 0.76 x10^3/uL (1-3.4); LYMPHOCYTES % (AUTO) 12 % (22-44); MD NO; MEAN CORPUSCULAR HEMOGLOBIN 28.9 pg (27.5-34.5); MEAN CORPUSCULAR HGB CONC 31.1 g/dL (33.2-36.2); MEAN CORPUSCULAR VOLUME 92.8 fL (81-97); MEAN PLATELET VOLUME 7.2 fL (7.4-10.4); MONOCYTES # (AUTO) 0.44 x10^3/uL (0.2-0.8); MONOCYTES % (AUTO) 7 % (2-9); NEUTROPHILS # (AUTO) 4.76 x10^3/uL (1.8-6.8); NEUTROPHILS % (AUTO) 75 % (42-75); PLATELET COUNT 286 x10^3/uL (130-400); RED BLOOD COUNT 4.04 x10^6/uL (4.38-5.82)
[2019-01-28 05:28] LABS: HCT (SEDRATE) 37.5 % (39.2-51.8)
[2019-01-28 05:29] LABS: ALBUMIN 2.8 g/dL (3.4-5.0); ANION GAP 9 mmol/L (5-15); CALCIUM 8.7 mg/dL (8.5-10.1); CHLORIDE 96 mmol/L (98-107)
[2019-01-28 05:32] LABS: ALANINE AMINOTRANSFERASE 10 U/L (12-78); ALKALINE PHOSPHATASE 79 U/L (45-117); BILIRUBIN,TOTAL 1.1 mg/dL (0.2-1.0); C-REACTIVE PROTEIN, QUANT 0.76 mg/dL (0.02-0.49); CREATININE 4.88 mg/dL (0.7-1.3); TOTAL PROTEIN 6.2 g/dL (6.4-8.2)
[2019-01-28 05:36] LABS: INTERNATIONAL NORMALIZED RATIO 2.92 (0.93-1.1); PROTHROMBIN TIME 29.4 Seconds (9.6-11.5)
[2019-01-28 07:39] VITALS: BP 148/69
[2019-01-28] MEDS: INSULIN LISPRO 100 UNITS/ML, PEN SQ-INSULIN SCH (10:43)
[2019-01-28] MEDS ORDERED: DOCU-131 PO (12:17)
[2019-01-28] MEDS ORDERED: AMLO2.5T5 PO (12:17)
[2019-01-28] MEDS ORDERED: CARV3.1212 PO (12:17)
[2019-01-28] MEDS ORDERED: ERGO500017 PO (12:17)
[2019-01-28] MEDS ORDERED: WARF3TAB52 PO (12:17)
[2019-01-28] MEDS ORDERED: PIPE2.255 IVPB (12:39)
[2019-01-28] MEDS ORDERED: LACT1TAB13 PO (12:39)
[2019-01-28] MEDS: SENNA/DOCUSATE TABLET PO SCH (12:57)
[2019-01-28] MEDS: ASPIRIN 81 MG TABLET EC PO SCH (12:57)
[2019-01-28] MEDS: AMLODIPINE 2.5 MG TABLET PO SCH (12:57)
[2019-01-28] MEDS: CINACALCET 30 MG TABLET PO SCH (12:58)
[2019-01-28] MEDS: SODIUM CHLORIDE FLUSH 10ML SYR IVF SCH (12:58)
[2019-01-28 13:17] VITALS: BP 120/52
[2019-01-28] MEDS ORDERED: ACET325T26 PO (17:40)
[2019-01-28] MEDS ORDERED: WARFARIN 2 MG TABLET PO-COUM ONE (18:00)
[2019-01-28] MEDS: ACETAMINOPHEN 325 MG TABLET PO PRN (18:09)
== END 2019-01-28 18:10 | DRG 239 ==
LOC: ED 12:40 → EDIP 14:40 → 4WST 15:44
PROVIDERS: ADMIT Internal Medicine; ATTEND Internal Medicine
PROC: 05PYX3Z Removal of Infusion Device from Upper Vein, External Approach (ICD-10-PCS; 2018-12-15)
PROC: 5A1D70Z Performance of Urinary Filtration, Intermittent, Less than 6 Hours Per Day (ICD-10-PCS; 2018-12-17)
PROC: 5A1D70Z Performance of Urinary Filtration, Intermittent, Less than 6 Hours Per Day (ICD-10-PCS; 2018-12-19)
PROC: 30233N1 Transfusion of Nonautologous Red Blood Cells into Peripheral Vein, Percutaneous Approach (ICD-10-PCS; 2018-12-21)
PROC: 0Y6C0Z3 Detachment at Right Upper Leg, Low, Open Approach (ICD-10-PCS; 2018-12-21)
PROC: 5A1D70Z Performance of Urinary Filtration, Intermittent, Less than 6 Hours Per Day (ICD-10-PCS; 2018-12-22)
PROC: 5A1D70Z Performance of Urinary Filtration, Intermittent, Less than 6 Hours Per Day (ICD-10-PCS; 2018-12-24)
PROC: 5A1D70Z Performance of Urinary Filtration, Intermittent, Less than 6 Hours Per Day (ICD-10-PCS; 2018-12-26)
PROC: 5A1D70Z Performance of Urinary Filtration, Intermittent, Less than 6 Hours Per Day (ICD-10-PCS; 2018-12-29)
PROC: 5A1D70Z Performance of Urinary Filtration, Intermittent, Less than 6 Hours Per Day (ICD-10-PCS; 2018-12-31)
PROC: 05780DZ Dilation of Left Axillary Vein with Intraluminal Device, Open Approach (ICD-10-PCS; principal; 2019-01-01)
PROC: 057 Upper Veins, Dilation (ICD-10-PCS; 2019-01-01)
PROC: B51W1ZZ Fluoroscopy of Dialysis Shunt/Fistula using Low Osmolar Contrast (ICD-10-PCS; 2019-01-01)
PROC: 5A1D70Z Performance of Urinary Filtration, Intermittent, Less than 6 Hours Per Day (ICD-10-PCS; 2019-01-01)
PROC: 5A1D70Z Performance of Urinary Filtration, Intermittent, Less than 6 Hours Per Day (ICD-10-PCS; 2019-01-03)
PROC: 5A1D70Z Performance of Urinary Filtration, Intermittent, Less than 6 Hours Per Day (ICD-10-PCS; 2019-01-05)
PROC: 5A1D70Z Performance of Urinary Filtration, Intermittent, Less than 6 Hours Per Day (ICD-10-PCS; 2019-01-07)
PROC: 5A1D70Z Performance of Urinary Filtration, Intermittent, Less than 6 Hours Per Day (ICD-10-PCS; 2019-01-09)
PROC: 5A1D70Z Performance of Urinary Filtration, Intermittent, Less than 6 Hours Per Day (ICD-10-PCS; 2019-01-12)
PROC: 5A1D70Z Performance of Urinary Filtration, Intermittent, Less than 6 Hours Per Day (ICD-10-PCS; 2019-01-14)
PROC: 5A1D70Z Performance of Urinary Filtration, Intermittent, Less than 6 Hours Per Day (ICD-10-PCS; 2019-01-16)
PROC: 5A1D70Z Performance of Urinary Filtration, Intermittent, Less than 6 Hours Per Day (ICD-10-PCS; 2019-01-19)
PROC: 5A1D70Z Performance of Urinary Filtration, Intermittent, Less than 6 Hours Per Day (ICD-10-PCS; 2019-01-21)
PROC: 5A1D70Z Performance of Urinary Filtration, Intermittent, Less than 6 Hours Per Day (ICD-10-PCS; 2019-01-23)
PROC: 0S993ZZ Drainage of Right Hip Joint, Percutaneous Approach (ICD-10-PCS; 2019-01-25)
PROC: 5A1D70Z Performance of Urinary Filtration, Intermittent, Less than 6 Hours Per Day (ICD-10-PCS; 2019-01-26)
PROC: 5A1D70Z Performance of Urinary Filtration, Intermittent, Less than 6 Hours Per Day (ICD-10-PCS; 2019-01-28)
DX: E11.52 Type 2 diabetes mellitus with diabetic peripheral angiopathy with gangrene (principal); N18.6 End stage renal disease; G93.41 Metabolic encephalopathy; K61.0 Anal abscess; T82.858A Stenosis of other vascular prosthetic devices, implants and grafts, initial encounter; L03.115 Cellulitis of right lower limb; E87.1 Hypo-osmolality and hyponatremia; D68.69 Other thrombophilia; I12.0 Hypertensive chronic kidney disease with stage 5 chronic kidney disease or end stage renal disease; L03.116 Cellulitis of left lower limb; M00.9 Pyogenic arthritis, unspecified; R64 Cachexia; Z68.1 Body mass index [BMI] 19.9 or less, adult; M86.171 Other acute osteomyelitis, right ankle and foot; Y71.2 Prosthetic and other implants, materials and accessory cardiovascular devices associated with adverse incidents; E11.22 Type 2 diabetes mellitus with diabetic chronic kidney disease; E55.9 Vitamin D deficiency, unspecified; D63.8 Anemia in other chronic diseases classified elsewhere; E11.69 Type 2 diabetes mellitus with other specified complication; B35.3 Tinea pedis; H54.8 Legal blindness, as defined in USA; I08.1 Rheumatic disorders of both mitral and tricuspid valves; E11.621 Type 2 diabetes mellitus with foot ulcer; H91.90 Unspecified hearing loss, unspecified ear; N25.0 Renal osteodystrophy; I48.91 Unspecified atrial fibrillation; Z99.2 Dependence on renal dialysis; Z79.01 Long term (current) use of anticoagulants; Z74.01 Bed confinement status; Z89.519 Acquired absence of unspecified leg below knee; Y92.89 Other specified places as the place of occurrence of the external cause
CPT/HCPCS: 20610; 20611; 36415; 36589; 72193; 75710; 77001; 80048; 80053; 80069; 80202; 82272; 82306; 82728; 82962; 83036; 83540; 83550; 83735; 83970; 84100; 84550; 85014; 85018; 85025; 85520; 85610; 85651; 85730; 86140; 86480; 86704; 86706; 86850; 86900; 86923; 87040; 87070; 87077; 87102; 87186; 87205; 87340; 90935; 93005; 93306; 93922; 93925; 93990; 96374; 99156; 99157; 99285; A9585; C1725; G0378; J0690; J0881; J1170; J1644; J1756; J2250; J2543; J2704; J2710; J2720; J3010; J3370; J3480; Q9967; C1751; C1769; C1876; C1894; J1450; J1642; J1815; J2310; J2370; J7030; J7040; P9016

== ENCOUNTER → 2018-12-15 | Outpatient (CLI) | payer MEDICARE, MEDICAID ==
[~2018-12-15] VITALS: Ht 162.6 cm; Wt 55.8 kg
[~2018-12-15] MED LIST changes: +AMLO-150 PO; +ASPI-496 PO; +CINA30TA2 PO; -HEPARIN 1,000 UNITS/ML, 10ML ONE; +PLEASE ENTER HEIGHT AND WEIGHT MC SCH; +SEVE800T8 PO; +SITA25TA PO; +SODIUM CHLORIDE 0.9% 1,000 ML IV SCH; +VIT B PO; +VITAMIN PO; +WARF-36 PO
[2018-12-15 11:00] VITALS: BP 134/65
[2018-12-15 11:31] LABS: INTERNATIONAL NORMALIZED RATIO 1.07 (0.93-1.1); PROTHROMBIN TIME 11.2 Seconds (9.6-11.5)
== END | disposition home or self-care (01) ==
LOC: EDSTATUS 10-29 09:30 → RAD 10-29 11:00
PROVIDERS: ATTEND Internal Medicine Nephrology
DX: N18.6 End stage renal disease (principal); Z53.8 Procedure and treatment not carried out for other reasons; R60.0 Localized edema; I10 Essential (primary) hypertension; E11.9 Type 2 diabetes mellitus without complications
CPT/HCPCS: 36415; 85610